=== PATIENT | female | born 1955 | race African-American/Black ===

== ENCOUNTER 2016-11-13 01:00 | Emergency (ER) | payer OTHER ==
[2016-11-13 01:23] VITALS: BP 150/72; TEMP 98.2; BMI 28.8
[2016-11-13] MEDS ORDERED: IBUPROFEN 400 MG TABLET (FP) PO ONE ×2 (01:58→02:02)
[2016-11-13] MEDS ORDERED: ONDANSETRON *ODT* 4 MG TABLET SL ONE (01:58)
--- NOTE | 2016-11-13 01:58 | PDOC ---
History of Present Illness - General History Source: Patient <Wes Austin - Last Filed: 11/13/16 03:10> - General History Source: Patient Exam Limitations: No Limitations - History of Present Illness Initial Comments: 11/13/16 03:20 The patient is a 61 year old female with significant past medical history of hypertension, hyperlipidemia, arrhythmia, copd/asthma and gerd who presents to the ED for headache prior to arrival. Patient reports she went to bed last night in her usual state of health when she was awoken around 12am with a headache and realize she did not take her blood pressure medications. States taking tylenol around 2am with minimal improvement. Denies lightheadedness, diaphoresis, SOB, chest pain, jaw pain, shoulder pain, arm pain, nausea, or vomiting. Upon triage, patient blood pressure was noted to be normal. The patient denies fever, chills, cough, abdominal pain, and diarrhea. Allergies: metoclopramide HCl, morphine Social History: No alcohol, tobacco, or drug use reported. Past Surgical History: appendectomy, cardiac catheterization PCP: Dr. Anthony Coffey <Bertha Martinez - Last Filed: 11/13/16 03:21> - General Chief Complaint: Blood Pressure Problem Stated Complaint: BP PROBLEM/SHOULDER PAIN Time Seen by Provider: 11/13/16 01:54 Past History - Past Medical History Anemia: No Asthma: Yes Cancer: No Cardiac Disorders: Yes (Arrythmia) CVA: No COPD: Yes CHF: No Dementia: No Diabetes: No GI Disorders: Yes (GERD) Disorders: No HTN: Yes Hypercholesterolemia: Yes Liver Disease: No Suicide Attempt (Hx): No Seizures: No Thyroid Disease: No - Surgical History Abdominal Surgery: No Appendectomy: Yes Cardiac Surgery: Yes (Cardiac Cath 2005, 2011,2016) Cholecystectomy: No Lung Surgery: No Neurologic Surgery: No Orthopedic Surgery: No - Family Disease History Family Disease History: Heart Disease: Father ( of [place] 63), Mother ( of [place] at age 59.) - Immunization History Immunization Up to Date: Yes - Psycho/Social/Smoking Cessation Hx Anxiety: No Suicidal Ideation: No Smoking Status: Yes Smoking History: Never smoked Have you smoked in the past 12 months: No Number of Cigarettes Smoked Daily: 0 If you are a former smoker, when did you quit?: Over 6 years ago Information on smoking cessation initiated: No Hx Alcohol Use: No Drug/Substance Use Hx: No Substance Use Type: None Hx Substance Use Treatment: No <Wes Austin - Last Filed: 11/13/16 03:10> <Bertha Martinez - Last Filed: 11/13/16 03:21> - Past Medical History Allergies/Adverse Reactions: Allergies Allergy/AdvReac Type Severity Reaction Status Date / Time lactose Allergy Mild Verified 11/13/16 01:21 wheat Allergy Unknown Verified 11/13/16 01:21 metoclopramide HCl Allergy Verified 11/13/16 01:21 [From Reglan] morphine Allergy Verified 11/13/16 01:21 Home Medications: Ambulatory Orders Amlodipine Besylate [Norvasc -] 10 mg PO DAILY 08/30/13 Nebivolol HCl [Bystolic] 5 mg PO DAILY 08/30/13 Valsartan [Diovan] 320 mg PO DAILY 08/30/13 Albuterol Sulfate Inhaler - [Ventolin HFA Inhaler -] 1 - 2 inh PO Q4H 01/14/15 Spironolactone 25 mg PO DAILY 01/14/15 Tiotropium [place] [Spiriva] 1 inh PO DAILY 01/14/15 Albuterol 0.083% Nebulizer Zaynab [Ventolin 0.083% Nebulizer Soln -] 1 neb NEB Q4H PRN #20 vial 08/12/15 Budesonide/Formeterol Fumarate [SYMBICORT 160/4.5mcg -] 1 inh PO BID 08/12/15 Fluticasone Propionate [Flovent Hfa] 10.6 gm IH PRN 08/12/15 Diphenhydramine HCl [Benadryl Capsule -] 25 mg PO TID #20 capsule 02/14/16 Methylprednisolone [Medrol Dose Jimmy] 4 mg PO ASDIR #21 tablet 02/14/16 Dextromethorphan Polistirex [Delsym] 30 mg PO BID #1 bottle 03/04/16 Loratadine [Claritin -] 10 mg PO DAILY #7 tablet 03/04/16 Naproxen [Naprosyn -] 500 mg PO BID #14 tablet 03/04/16 Ibuprofen 800 mg PO TID #30 tablet 11/13/16 Ondansetron [Zofran *Odt*] 4 mg SL TID #30 od.tablet 11/13/16 Review of Systems - Review of Systems Able to Perform ROS?: Yes Comments:: 11/13/16 03:20 CONSTITUTIONAL: Absent: fever, no chills, no fatigue EYES: Absent: visual changes ENT: Absent: ear pain, no sore throat CARDIOVASCULAR: Absent: chest pain, no palpitations RESPIRATORY: Absent: cough, no SOB GI: Absent: abdominal pain, no nausea, no vomiting, no constipation, no diarrhea GENITOURINARY: Absent: dysuria, no frequency, no hematuria MUSCULOSKELETAL: Absent: back pain, no arthralgia, no myalgia SKIN: Absent: rash NEURO: +headache <Bertha Martinez - Last Filed: 11/13/16 03:21> *Physical Exam - Vital Signs Last Vital Signs Temp Pulse Resp BP Pulse Ox 98.2 F 83 20 150/72 100 11/13/16 01:21 11/13/16 01:21 11/13/16 01:21 11/13/16 01:21 11/13/16 01:21 <Wes Austin - Last Filed: 11/13/16 03:10> - Vital Signs Last Vital Signs Temp Pulse Resp BP Pulse Ox 98.2 F 68 20 150/72 97 11/13/16 01:21 11/13/16 01:55 11/13/16 01:21 11/13/16 01:21 11/13/16 01:55 - Physical Exam Comments: 11/13/16 03:20 GENERAL: Well-appearing, well-nourished. No apparent distress. HEENT: Normocephalic, atraumatic. PERRL, EOM intact. CARDIOVASCULAR: Normal S1, S2. Regular rate and rhythm. PULMONARY: Clear to auscultation bilaterally. ABDOMEN: Soft, non-distended, non-tender. EXTREMITIES: Normal ROM in all four extremities. No gross deformities. SKIN: Warm, dry. No rash NEUROLOGICAL: No focal neurological deficits. <Bertha Martinez - Last Filed: 11/13/16 03:21> ED Treatment Course - Medications Given in the ED: ED Medications Discontinued Medications Generic Name Dose Route Start Last Admin Trade Name Freq PRN Reason Stop Dose Admin Ibuprofen 800 mg 11/13/16 01:58 11/13/16 02:05 Motrin - PO 11/13/16 01:59 800 mg ONCE ONE Administration Ondansetron HCl 4 mg 11/13/16 01:58 11/13/16 02:05 Zofran Odt - SL 11/13/16 01:59 4 mg ONCE ONE Administration <Bertha Martinez - Last Filed: 11/13/16 03:21> Medical Decision Making - Medical Decision Making 11/13/16 03:11 Dr. Austin: The scribe's documentation has been prepared under my direction and personally reviewed by me in its entirery. I confirm that the note above accurately reflects all work, treatment, procedures, and medical decision making performed by me. <Wes Austin - Last Filed: 11/13/16 03:10> *DC/Admit/Observation/Transfer - Discharge Dispostion Admit: No <Wes Austin - Last Filed: 11/13/16 03:10> - Attestations Scribe Attestion: 11/13/16 03:21 Documentation prepared by Bertha Martinez, acting as medical office assistant instructor for Wes Austin MD <Bertha Martinez - Last Filed: 11/13/16 03:21> Diagnosis at time of Disposition: Headache, Hypertension - Discharge Dispostion Disposition: HOME Condition at time of disposition: Stable - Prescriptions Prescriptions: Ibuprofen 800 mg PO TID #30 tablet Ondansetron [Zofran *Odt*] 4 mg SL TID #30 od.tablet - Referrals Referrals: Anthony Coffey MD [Primary Care Provider] - - Patient Instructions Printed Discharge Instructions: DI for High Blood Pressure
[2016-11-13 02:00] VITALS: PULSE 68
[2016-11-13] MEDS ORDERED: ONDANSETRON *ODT* 4 MG TABLET ONE (02:02)
== END 2016-11-13 03:30 | disposition home or self-care (01) ==
LOC: JER 01:00
DX: I10 Essential (primary) hypertension (principal); J44.9 Chronic obstructive pulmonary disease, unspecified; J45.909 Unspecified asthma, uncomplicated; E78.5 Hyperlipidemia, unspecified; K21.9 Gastro-esophageal reflux disease without esophagitis
CPT/HCPCS: 99283-25

== ENCOUNTER 2017-02-02 20:31 | Emergency (ER) | payer OTHER ==
[2017-02-02 20:57] VITALS: TEMP 98.2; BMI 30.4
--- NOTE | 2017-02-02 21:31 | PDOC ---
History of Present Illness - General History Source: Patient Exam Limitations: No Limitations - History of Present Illness Initial Comments: 02/02/17 21:54 The patient is a 62-year-old female, with significant past medical history of hypertension, hyperlipidemia, arrhythmia, copd/asthma and gerd, who presents to the ED with generalized weakness, chest tightness, left shoulder pain, headache , and neck pain that began 30 minutes prior to presentation. Pt frequently comes in with similar complaints. Pt is compliant with all her medications. She reports taking an additional dose of bystolic just prior to presentation. She denies experiencing any chest pain or chest tightness. Along with the headache, the pt reports having palpitations. She denies any fever, chills, nausea, vomiting, diarrhea, or abdominal pain. PCP: Dr Alicia <Jennifer Vitale - Last Filed: 02/02/17 21:54> - General History Source: Patient <Wes Austin - Last Filed: 02/02/17 22:36> - General Chief Complaint: Blood Pressure Problem Stated Complaint: HIGH BLOOD PRESS,PAIN Time Seen by Provider: 02/02/17 21:23 Past History <Jennifer Vitale - Last Filed: 02/02/17 21:54> - Past Medical History Anemia: No Asthma: Yes Cancer: No Cardiac Disorders: Yes (Arrythmia) CVA: No COPD: Yes CHF: No Dementia: No Diabetes: No GI Disorders: Yes (GERD) Disorders: No HTN: Yes Hypercholesterolemia: Yes Liver Disease: No Suicide Attempt (Hx): No Seizures: No Thyroid Disease: No - Surgical History Abdominal Surgery: No Appendectomy: Yes Cardiac Surgery: Yes (Cardiac Cath 2005, 2011,2016) Cholecystectomy: No Lung Surgery: No Neurologic Surgery: No Orthopedic Surgery: No - Family Disease History Family Disease History: Heart Disease: Father ( of [place] 63), Mother ( of [place] at age 59.) - Immunization History Immunization Up to Date: Yes - Psycho/Social/Smoking Cessation Hx Anxiety: No Suicidal Ideation: No Smoking Status: Yes Smoking History: Never smoked Have you smoked in the past 12 months: No Number of Cigarettes Smoked Daily: 0 If you are a former smoker, when did you quit?: Over 6 years ago Hx Alcohol Use: No Drug/Substance Use Hx: No Substance Use Type: None Hx Substance Use Treatment: No <Wes Austin - Last Filed: 02/02/17 22:36> - Past Medical History Allergies/Adverse Reactions: Allergies Allergy/AdvReac Type Severity Reaction Status Date / Time lactose Allergy Mild Verified 02/02/17 20:55 wheat Allergy Unknown Verified 02/02/17 20:55 metoclopramide HCl Allergy Verified 02/02/17 20:55 [From Reglan] morphine Allergy Verified 02/02/17 20:55 Home Medications: Ambulatory Orders Amlodipine Besylate [Norvasc -] 10 mg PO DAILY 08/30/13 Nebivolol HCl [Bystolic] 5 mg PO DAILY 08/30/13 Valsartan [Diovan] 320 mg PO DAILY 08/30/13 Spironolactone 25 mg PO DAILY 01/14/15 Albuterol 0.083% Nebulizer Zaynab [Ventolin 0.083% Nebulizer Soln -] 1 neb NEB Q4H PRN #20 vial 08/12/15 Fluticasone Propionate [Flovent Hfa] 10.6 gm IH PRN 08/12/15 Review of Systems - Review of Systems Able to Perform ROS?: Yes Comments:: 02/02/17 21:54 CONSTITUTIONAL: Present: generalized weakness Absent: fever, chills, diaphoresis, malaise, loss of appetite HEENT: Absent: rhinorrhea, nasal congestion, throat pain, throat swelling, difficulty swallowing, mouth swelling, ear pain, eye pain, visual Changes CARDIOVASCULAR: Present: palpitations Absent: chest pain, syncope, irregular heart rate, lightheadedness, peripheral edema RESPIRATORY: Absent: cough, shortness of breath, dyspnea with exertion, orthopnea, wheezing, stridor, hemoptysis GASTROINTESTINAL: Absent: abdominal pain, abdominal distension, nausea, vomiting, diarrhea, constipation, melena, hematochezia GENITOURINARY: Absent: dysuria, frequency, urgency, hesitancy, hematuria, flank pain, genital pain MUSCULOSKELETAL: Present: left shoulder pain, neck pain Absent: arthralgia, joint swelling SKIN: Absent: rash, itching, pallor HEMATOLOGIC/IMMUNOLOGIC: Absent: easy bleeding, easy bruising, lymphadenopathy, frequent infections ENDOCRINE: Absent: unexplained weight gain, unexplained weight loss, heat intolerance, cold intolerance NEUROLOGIC: Present: headache Absent: focal weakness or paresthesias, dizziness, unsteady gait, seizure, mental status changes, bladder or bowel incontinence PSYCHIATRIC: Absent: anxiety, depression, suicidal or homicidal ideation, hallucinations. <Jennifer Vitale - Last Filed: 02/02/17 21:54> *Physical Exam - Vital Signs Last Vital Signs Temp Pulse Resp BP Pulse Ox 98.2 F 91 H 20 138/81 98 02/02/17 20:55 02/02/17 20:55 02/02/17 20:55 02/02/17 21:52 02/02/17 20:55 - Physical Exam Comments: 02/02/17 21:56 GENERAL: Well developed, well nourished. Awake and alert. No acute distress. HEENT: Normocephalic, atraumatic. PERRLA, EOMI. No conjunctival pallor. Sclera are non- icteric. Moist mucous membranes. Oropharynx is clear. NECK: Supple. Full ROM. No JVD. Carotid pulses 2+ and symmetric, without bruits. No thyromegaly. No lymphadenopathy. CARDIOVASCULAR: Regular rate and rhythm. No murmurs, rubs, or gallops. Distal pulses are 2+ and symmetric. PULMONARY: No evidence of respiratory distress. Lungs clear to auscultation bilaterally. No wheezing, rales or rhonchi. ABDOMINAL: Soft. Non-tender. Non-distended. No rebound or guarding. No organomegaly. Normoactive bowel sounds. MUSCULOSKELETAL Normal range of motion at all joints. No bony deformities or tenderness. No CVA tenderness. EXTREMITIES: No cyanosis. No clubbing. No edema. No calf tenderness. SKIN: Warm and dry. Normal capillary refill. No rashes. No jaundice. NEUROLOGICAL: Alert, awake, appropriate. Cranial nerves 2-12 intact. PSYCHIATRIC: Cooperative. Good eye contact. Appropriate mood and affect. <IamJennifer - Last Filed: 02/02/17 21:54> - Vital Signs Last Vital Signs Temp Pulse Resp BP Pulse Ox 98.2 F 91 H 20 164/81 98 02/02/17 20:55 02/02/17 20:55 02/02/17 20:55 02/02/17 20:55 02/02/17 20:55 <Wes Austin - Last Filed: 02/02/17 22:36> ED Treatment Course - LABORATORY CBC & Chemistry Diagram: 02/02/17 21:44 02/02/17 21:44 <Jennifer Vitale - Last Filed: 02/02/17 21:54> - LABORATORY CBC & Chemistry Diagram: 02/02/17 21:44 02/02/17 21:44 <Wes Austin - Last Filed: 02/02/17 22:36> Medical Decision Making - Medical Decision Making 02/02/17 22:35 Dr. Austin: The scribe's documentation has been prepared under my direction and personally reviewed by me in its entirery. I confirm that the note above accurately reflects all work, treatment, procedures, and medical decision making performed by me. Pt feeing better since she arrived. BP has improved without treatment. Will discharge <Wes Austin - Last Filed: 02/02/17 22:36> *DC/Admit/Observation/Transfer - Attestations Scribe Attestion: 02/02/17 21:57 Documentation prepared by Jennifer Vitale, acting as hospital medical biller for Wes Austin MD. <Jennifer Vitale - Last Filed: 02/02/17 21:54> - Discharge Dispostion Admit: No <Wes Austin - Last Filed: 02/02/17 22:36> Diagnosis at time of Disposition: Hypertension Qualifiers: Hypertension type: unspecified Qualified Code(s): I10 - Essential (primary) hypertension - Discharge Dispostion Disposition: HOME Condition at time of disposition: Stable - Referrals Referrals: Anthony Coffey MD [Primary Care Provider] - - Patient Instructions Printed Discharge Instructions: DI for High Blood Pressure, How to Monitor Your Blood Pressure at Home Additional Instructions: continue taking all your medications. Return if any problems
[2017-02-02] MEDS ORDERED: hydrALAZINE HCL 20 MG/ML VIAL IVPUSH ONE (21:32)
[2017-02-02] MEDS ORDERED: hydrALAZINE HCL 20 MG/ML VIAL ONE (21:46)
[2017-02-02] MEDS ORDERED: ACETAMINOPHEN 325 MG TABLET (FP) PO ONE (21:50)
[2017-02-02] MEDS ORDERED: ACETAMINOPHEN 325 MG TABLET (FP) ONE (21:53)
[2017-02-02 21:54] LABS: BASOPHIL 0.5 % (0-2.0); MCHC 33.1 g/dl (32.0-36.0); MEAN CELL VOLUME 90.5 fl (80-96); MEAN PLT VOLUME 9.9 fl (7.5-11.1); NEUTROPHILS 52.2 % (42.8-82.8); PLATELET COUNT 172 K/MM3 (134-434); RDW 13.9 % (11.6-15.6); WHITE BLOOD COUNT 4.1 K/mm3 (4.0-10.0)
[2017-02-02 22:23] LABS: ANION GAP 7 (8-16); CALCIUM 9.1 mg/dL (8.5-10.1); CO2 28 mmol/L (21-32); GLUCOSE,RANDOM 93 mg/dL (74-106); SGOT/AST 20 U/L (15-37); SGPT/ALT 25 U/L (12-78); TOT PROT 7.7 g/dl (6.4-8.2)
[2017-02-02 22:28] LABS: INR 0.93 (0.82-1.09); PROTHROMBIN TIME (PATIENT) 10.2 SEC (9.98-11.88)
[2017-02-02 22:29] LABS: ALK PHOS 103 U/L (45-117); BILIRUBIN,TOTAL 0.3 mg/dL (0.2-1.0); TROPONIN I < 0.02 ng/ml (0.00-0.05)
[2017-02-02 22:48] VITALS: BP 128/75; PULSE 60
--- NOTE | 2017-02-03 14:55 | EKG ---
Test Reason : Blood Pressure : / mmHG Vent. Rate : 066 BPM Atrial Rate : 066 BPM P-R Int : 160 ms QRS Dur : 076 ms QT Int : 402 ms P-R-T Axes : 036 -05 025 degrees QTc Int : 421 ms POOR DATA QUALITY, INTERPRETATION MAY BE ADVERSELY AFFECTED NORMAL SINUS RHYTHM SEPTAL INFARCT (CITED ON OR BEFORE 12-AUG-2015) ABNORMAL ECG WHEN COMPARED WITH ECG OF 12-AUG-2015 15:17, NO SIGNIFICANT CHANGE WAS FOUND Confirmed by ANUPAM OLVERA MD ([id number]) on 02/03/2017 2:55:03 PM Referred By: Confirmed By:ANUPAM OLVERA MD
== END 2017-02-02 22:49 | disposition home or self-care (01) ==
LOC: JER 20:31
DX: I10 Essential (primary) hypertension (principal); E78.5 Hyperlipidemia, unspecified; J44.9 Chronic obstructive pulmonary disease, unspecified; J45.909 Unspecified asthma, uncomplicated; K21.9 Gastro-esophageal reflux disease without esophagitis
CPT/HCPCS: 36415; 80053; 82550; 82553; 84484; 85025; 85610; 93005; 93010; 99282-25

== ENCOUNTER 2018-09-21 08:46 | Day surgery (SDC) | payer OTHER ==
[2018-09-20 16:18] VITALS: BMI 31.1
[2018-09-21 10:29] VITALS: TEMP 97.9
[2018-09-21 11:22] VITALS: BP 114/61; PULSE 55
--- NOTE | 2018-09-22 17:35 | PATH ---
Surgical Pathology Report Patient Name: LUKASZ PULLIAM [facility]. Rec. #: [id number] /Age/Gender: 1955 (Age: 63) / F Account: [id number] Location: [facility]-ENDOSCOPY Taken: 09/21/2018 Received: 09/21/2018 Reported: 09/22/2018 Physicians: Mayelin Gomez M.D. Specimen(s) Received A: TRANSVERSE COLON POLYP B: DESCENDING COLON POLYP Clinical History Screening Postoperative diagnosis: Colon polyps Final Diagnosis A. TRANSVERSE COLON, POLYP, BIOPSY: POLYPOID COLONIC MUCOSA WITH PROMINENT LYMPHOID AGGREGATE AND FOCAL SUPERFICIAL HYPERPLASTIC FEATURES. B. DESCENDING COLON, POLYP, POLYPECTOMY: HYPERPLASTIC POLYP. Electronically Signed Kesha Posada M.D. Gross Description A. Received in formalin, labeled "polyp transverse colon" are 2 ruiz, irregular portions of soft tissue measuring 0.3 and 0.4 cm. in greatest dimension. The specimens are submitted in toto in one cassette. B. Received in formalin, labeled "polyp descending colon" is a ruiz, irregular portion of soft tissue measuring 0.8 cm. in greatest dimension. The specimen is submitted in toto in one cassette. /09/21/2018 saudi09/21/2018
== END 2018-09-21 11:22 | disposition home or self-care (01) ==
LOC: JASU-ENDO 08:46
PROVIDERS: ATTEND Internal Medicine Gastroenterology
PROC: 0DBL8ZX Excision of Transverse Colon, Via Natural or Artificial Opening Endoscopic, Diagnostic (ICD-10-PCS; 2018-09-21)
PROC: 0DBM8ZX Excision of Descending Colon, Via Natural or Artificial Opening Endoscopic, Diagnostic (ICD-10-PCS; principal; 2018-09-21 09:30)
DX: Z12.11 Encounter for screening for malignant neoplasm of colon (principal); D12.4 Benign neoplasm of descending colon; D12.3 Benign neoplasm of transverse colon
CPT/HCPCS: 88305-TC

== ENCOUNTER 2019-02-16 03:54 | Emergency (ER) | payer OTHER ==
[2019-02-16 04:50] VITALS: BP 146/82; PULSE 65; TEMP 97.5; BMI 30.1
--- NOTE | 2019-02-16 04:54 | PDOC ---
History of Present Illness - General Chief Complaint: Eye Problem Stated Complaint: RIGHT EYE BURNING PAIN Time Seen by Provider: 02/16/19 04:54 - History of Present Illness Initial Comments: 64 year old female with PMH of HTN, GERD, asthma, and chronic dry eyes presenting with right eye pain and tearing since applying eye drops early this evening. States that she woke up at approximately 24:00 this morning and applied hydrating eye drops to both of her eyes (in her typical fashion) but noted that she had burning in the right eye which worsened with repeat drop application. She does note any gross visual change. She does note amild right sided headache. Does not recall any episode of trauma to her eyes during her sleep. Denies fevers, chills, nausea, vomiting, or diarrhea. 02/16/19 12:43 Past History - Past Medical History Allergies/Adverse Reactions: Allergies Allergy/AdvReac Type Severity Reaction Status Date / Time metoclopramide HCl Allergy Severe Difficulty Verified 02/16/19 04:58 [From Reglan] Breathing morphine Allergy Severe Difficulty Verified 02/16/19 04:58 Breathing lactose Allergy Mild Verified 02/16/19 04:27 wheat Allergy Unknown Verified 02/16/19 04:27 Home Medications: Ambulatory Orders Amlodipine Besylate [Norvasc -] 10 mg PO DAILY 08/30/13 Nebivolol HCl [Bystolic] 5 mg PO DAILY 08/30/13 Valsartan [Diovan] 320 mg PO DAILY 08/30/13 Spironolactone 25 mg PO DAILY 01/14/15 Albuterol 0.083% Nebulizer Zaynab [Ventolin 0.083% Nebulizer Soln -] 1 neb NEB Q4H PRN #20 vial 08/12/15 Fluticasone Propionate [Flovent Hfa] 10.6 gm IH PRN 08/12/15 Oxycodone HCl/Acetaminophen [Oxycodone-Acetaminophen 10-325] 1 each PO DAILY 12/04 Ranitidine [Zantac -] 150 mg PO BID 09/20/18 Cyclosporine [Restasis] 1 each OP DAILY 02/16/19 Anemia: Yes Asthma: Yes Cancer: No Cardiac Disorders: Yes (Arrythmia) CVA: No COPD: Yes CHF: No Dementia: No Diabetes: No GI Disorders: Yes (GERD,Hyperplastic polyp) Disorders: No HTN: Yes Hypercholesterolemia: Yes Liver Disease: No Seizures: No Thyroid Disease: No - Surgical History Abdominal Surgery: No Appendectomy: Yes Cardiac Surgery: Yes (Cardiac Cath 2005, 2011,2015) Cholecystectomy: No Lung Surgery: No Neurologic Surgery: No Orthopedic Surgery: No - Family Disease History Family Disease History: Heart Disease: Father ( of [place] 63), Mother ( of [place] at age 59.) - Immunization History Immunization Up to Date: Yes - Suicide/Smoking/Psychosocial Hx Smoking Status: Yes Smoking History: Never smoked Have you smoked in the past 12 months: No Number of Cigarettes Smoked Daily: 0 If you are a former smoker, when did you quit?: 2006 Information on smoking cessation initiated: No Hx Alcohol Use: No Drug/Substance Use Hx: No Substance Use Type: None Hx Substance Use Treatment: No Review of Systems - Review of Systems Constitutional: No: Chills, Diaphoresis, Fever HEENTM: Yes: Eye Pain, Blurred Vision, Tearing. No: Recent change in vision, Double Vision Respiratory: No: Cough, Orthopnea Cardiac (ROS): No: Chest Pain, Edema ABD/GI: No: Diarrhea, Nausea, Vomiting : No: Dysuria, Discharge Musculoskeletal: No: Back Pain, Joint Pain Integumentary: No: Bruising, Erythema, Flushing, Lesions Neurological: No: Headache, Numbness, Paresthesia Hematologic/Lymphatic: No: Anemia, Blood Clots, Easy Bleeding *Physical Exam - Vital Signs Last Vital Signs Temp Pulse Resp BP Pulse Ox 97.5 F L 65 20 146/82 99 02/16/19 03:54 02/16/19 03:54 02/16/19 03:54 02/16/19 03:54 02/16/19 03:54 - Physical Exam General Appearance: Yes: Nourished, Appropriately Dressed. No: Apparent Distress HEENT: positive: EOMI, WESLY, Normal Voice. negative: Normal ENT Inspection ( mild right eye erythema with positive inferior corneal and conjunctival flourescien stain uptake. Vision grossly intact in both eyes and symmetrical) Neck: positive: Trachea midline, Normal Thyroid, Supple. negative: Tender, Rigid Respiratory/Chest: positive: Lungs Clear, Normal Breath Sounds. negative: Chest Tender, Respiratory Distress, Accessory Muscle Use Cardiovascular: positive: Regular Rhythm, Regular Rate Gastrointestinal/Abdominal: positive: Normal Bowel Sounds, Flat, Soft. negative : Tender Lymphatic: negative: Adenopathy, Tenderness Musculoskeletal: positive: Normal Inspection. negative: Decreased Range of Motion Extremity: positive: Normal Capillary Refill, Normal Inspection, Normal Range of Motion. negative: Tender Integumentary: positive: Normal Color, Dry, Warm Neurologic: positive: Fully Oriented, Alert, Normal Mood/Affect, Normal Response , Motor Strength 5/5 Medical Decision Making - Medical Decision Making 64 year old female presenting with right eye pain and + fluroescein test for corneal abrasion at inferior margin of right eye. Symptoms improved with tetracaine drops in right eye. Does not wear contacts so not at risk for infection. Will have patient follow up with her opthalmologist and provide her with return precautions. 02/16/19 12:52 *DC/Admit/Observation/Transfer Diagnosis at time of Disposition: Corneal abrasion, right Qualifiers: Encounter type: initial encounter Qualified Code(s): S05.01XA - Injury of conjunctiva and corneal abrasion without foreign body, right eye, initial encounter - Discharge Dispostion Disposition: HOME Condition at time of disposition: Improved Decision to Admit order: No - Referrals Referrals: Anthony Coffey MD [Primary Care Provider] - - Patient Instructions Printed Discharge Instructions: DI for Corneal Abrasion Additional Instructions: Please do not use contacts or put anything in your eyes. Please return to the ED if you have new or worsening symptoms. Please follow up with your eye doctor as soon as possible. - Post Discharge Activity
[2019-02-16] MEDS ORDERED: TETRACAINE 0.5% HCL 0.6ML DROPPER.BOTTLE OD ONE (05:03)
[2019-02-16] MEDS ORDERED: FLUORESCEIN NA 1 EA STRIP OD ONE (05:03)
--- NOTE | 2019-02-16 05:07 | PDOC ---
Attending Attestation - Resident Resident Name: Jim Hernandez - ED Attending Attestation I have performed the following: I have examined & evaluated the patient, The case was reviewed & discussed with the resident, I agree w/resident's findings & plan - HPI HPI: 02/16/19 05:55 64-year-old female with pain to the right eye. There is no known history of trauma. - Physicial Exam PE: 02/16/19 06:01 agree with resident exam - Medical Decision Making 02/16/19 06:01 64-year-old female with pain to the right eye Exam reveals a large right corneal abrasion Will DC with outpatient ophthalmology follow-up
[2019-02-16] MEDS ORDERED: TETRACAINE 0.5% OPHTH SOLN 2 ML BOTTLE ONE (05:29)
== END 2019-02-16 06:04 | disposition home or self-care (01) ==
LOC: JER 03:54
DX: S05.01XA Injury of conjunctiva and corneal abrasion without foreign body, right eye, initial encounter (principal); X58.XXXA Exposure to other specified factors, initial encounter; Y92.032 Bedroom in apartment as the place of occurrence of the external cause
CPT/HCPCS: 99281-25

== ENCOUNTER 2020-01-16 16:17 | Emergency (ER) | payer BC, OTHER ==
[2020-01-16 16:26] VITALS: BMI 28.8
[2020-01-16] MEDS ORDERED: ACETAMINOPHEN 1000 MG/100 ML VIAL (NON FORMULARY) IVPB ONE (16:33)
[2020-01-16] MEDS ORDERED: SODIUM CHLORIDE 0.9% 500 ML INFUS.BAG IV ONE (16:33)
[2020-01-16] MEDS ORDERED: ACETAMINOPHEN INJECTION 100 ML IVPB ONE (16:50)
[2020-01-16 17:18] LABS: BASO % 0.4 % (0-2.0); EOS % 1.5 % (0-4.5); HEMATOCRIT 38.8 % (32.4-45.2); HEMOGLOBIN 12.9 GM/dL (10.7-15.3); LYMPH % 41.6 % (8-40); MCH 30.6 pg (25.7-33.7); MCHC 33.1 g/dl (32.0-36.0); MEAN CELL VOLUME 92.5 fl (80-96); MEAN PLT VOLUME 9.7 fl (7.5-11.1); MONO % 8.8 % (3.8-10.2); NEUT % 47.7 % (42.8-82.8); PLATELET COUNT 195 K/MM3 (134-434); RDW 13.8 % (11.6-15.6)
[2020-01-16 17:27] LABS: PROTHROMBIN TIME (PATIENT) 11.8 SEC (9.7-13.0)
[2020-01-16 17:51] LABS: BILIRUBIN,TOTAL 0.4 mg/dL (0.2-1); BLOOD UREA NITROGEN 10.4 mg/dL (7-18); CALCIUM 9.8 mg/dL (8.5-10.1); CREATININE 1.3 mg/dL (0.55-1.3); POTASSIUM 3.6 mmol/L (3.5-5.1); TOT PROT 7.3 g/dl (6.4-8.2)
--- NOTE | 2020-01-16 18:25 | PDOC ---
History of Present Illness - General Chief Complaint: Headache Stated Complaint: HEADACHES Time Seen by Provider: 01/16/20 16:21 - History of Present Illness Initial Comments: 01/16/20 18:23 64-year-old female with a past medical history of hypertension presents for sudden onset headache. She states she was getting into a [employer] air [employer] and immediately got headache. No prior headaches like this in the past. Past History - Medical History Allergies/Adverse Reactions: Allergies Allergy/AdvReac Type Severity Reaction Status Date / Time metoclopramide HCl Allergy Severe Difficulty Verified 01/05/20 00:50 [From Reglan] Breathing morphine Allergy Severe Difficulty Verified 01/05/20 00:50 Breathing lactose Allergy Mild Verified 01/05/20 00:50 wheat Allergy Unknown Verified 01/05/20 00:50 Home Medications: Ambulatory Orders Amlodipine Besylate [Norvasc -] 10 mg PO DAILY 08/30/13 Nebivolol HCl [Bystolic] 5 mg PO DAILY 08/30/13 Valsartan [Diovan] 320 mg PO DAILY 08/30/13 Spironolactone 25 mg PO DAILY 01/14/15 Albuterol 0.083% Nebulizer Zaynab [Ventolin 0.083% Nebulizer Soln -] 1 neb NEB Q4H PRN #20 vial 08/12/15 Fluticasone Propionate [Flovent Hfa] 10.6 gm IH PRN 08/12/15 Oxycodone HCl/Acetaminophen [Oxycodone-Acetaminophen 10-325] 1 each PO DAILY 09/20/18 Ranitidine [Zantac -] 150 mg PO BID 09/20/18 Cyclosporine [Restasis] 1 each OP DAILY 02/16/19 Anemia: Yes Asthma: Yes Cancer: No Cardiac Disorders: Yes (Arrythmia) CVA: No COPD: Yes CHF: No Dementia: No Diabetes: No GI Disorders: Yes (GERD,Hyperplastic polyp) Disorders: No HTN: Yes Hypercholesterolemia: Yes Liver Disease: No Seizures: No Thyroid Disease: No - Surgical History Abdominal Surgery: No Appendectomy: Yes Cardiac Surgery: Yes (Cardiac Cath 2005, 2011,2016) Cholecystectomy: No Lung Surgery: No Neurologic Surgery: No Orthopedic Surgery: No - Immunization History Immunization Up to Date: Yes - Psycho-Social/Smoking History Smoking Status: Yes Smoking History: Never smoked Have you smoked in the past 12 months: No Number of Cigarettes Smoked Daily: 0 If you are a former smoker, when did you quit?: 2007 - Substance Abuse Hx (Audit-C & DAST Scrn) How often the patient has a drink containing alcohol: Never Score: In Men: 4 or > Positive; In Women: 3 or > Positive: 0 Screen Result (Pos requires Nsg. Audit-10AR): Negative In the last yr the pt used illegal drug/Rx for NonMed reason: No Score: Yes response is considered Positive: 0 Screen Result (Positive result requires Nsg. DAST-10): Negative Review of Systems - Review of Systems ABD/GI: No: Nausea, Vomiting Neurological: Yes: Headache *Physical Exam - Vital Signs Last Vital Signs Temp Pulse Resp BP Pulse Ox 98.5 F 74 16 153/90 100 01/16/20 16:21 01/16/20 16:21 01/16/20 16:21 01/16/20 16:21 01/16/20 16:21 - Physical Exam 01/16/20 18:23 GENERAL: The patient is awake, alert, and fully oriented, in no acute distress. HEAD: Normal with no signs of trauma. EYES: sclera anicteric, conjunctiva clear. ENT: Ears normal tympanic membranes normal oropharynx clear uvula midline NECK: Normal range of motion LUNGS: Breath sounds equal, clear to auscultation bilaterally. No wheezes, and no crackles. HEART: S1 and S2 without murmur, rub or gallop. ABDOMEN: Soft, nontender, normoactive bowel sounds. No guarding, no rebound. No masses. EXTREMITIES: Normal range of motion, no edema. No clubbing or cyanosis. No cords, erythema, or tenderness. NEUROLOGICAL: Cranial nerves II through XII grossly intact.Negative Romberg PSYCH: Normal mood, normal affect. SKIN: Warm, Dry, normal turgor, no rashes or lesions noted. ED Treatment Course - LABORATORY CBC & Chemistry Diagram: 01/16/20 17:00 01/16/20 17:00 - ADDITIONAL ORDERS Additional order review: Laboratory Results 01/16/20 01/16/20 17:00 17:00 PT with INR 11.80 INR 1.00 Sodium 140 Potassium 3.6 Chloride 104 Carbon Dioxide 28 Anion Gap 8 BUN 10.4 Creatinine 1.3 Est GFR (CKD-EPI)AfAm 50.21 Est GFR (CKD-EPI)NonAf 43.32 Random Glucose 97 Calcium 9.8 Total Bilirubin 0.4 AST 25 ALT 26 Alkaline Phosphatase 81 Total Protein 7.3 Albumin 4.0 01/16/20 17:00 RBC 4.20 MCV 92.5 MCHC 33.1 RDW 13.8 MPV 9.7 Neutrophils % 47.7 Lymphocytes % 41.6 H D Monocytes % 8.8 Eosinophils % 1.5 Basophils % 0.4 - RADIOLOGY Radiology Studies Ordered: Category Date Time Status HEAD CT WITHOUT CONTRAST [CT] Stat CT Scan 01/16/20 17:10 Completed - Medications Given in the ED: ED Medications Discontinued Medications Generic Name Dose Route Start Last Admin Trade Name Freq PRN Reason Stop Dose Admin Acetaminophen 1,000 mg 01/16/20 16:33 01/16/20 17:02 Ofirmev Injection - IVPB 01/16/20 16:34 1,000 mg ONCE ONE Administration Sodium Chloride 1,000 ml 01/16/20 16:33 01/16/20 17:02 Normal Saline - IV 01/16/20 16:34 1,000 ml ONCE ONE Administration Medical Decision Making - Medical Decision Making 01/16/20 18:23 Patient is better after IV fluids and affirmative 01/16/20 18:24 I have reviewed the pathophysiology with the patient. They are in agreement with the treatment plan all questions were answered to their satisfaction. Understanding for follow-up without fail was also conveyed to the patient. Again they are in agreement. Discharge - Discharge Information Problems reviewed: Yes Clinical Impression/Diagnosis: Headache Condition: Stable Disposition: HOME - Admission No - Follow up/Referral Referrals: Anthony Coffey MD [Primary Care Provider] - Madi Escamilla MD [Staff Physician] - - Patient Discharge Instructions Additional Instructions: Tylenol as directed for pain. Return to the emergency room for worsening symptoms and without fail follow-up with neurology in 1 to 2 days for further evaluation and treatment options. - Post Discharge Activity
[2020-01-16 18:37] VITALS: BP 138/69; PULSE 69; TEMP 98.6
== END 2020-01-16 18:37 | disposition home or self-care (01) ==
LOC: JER 16:17
PROC: 3E033NZ Introduction of Analgesics, Hypnotics, Sedatives into Peripheral Vein, Percutaneous Approach (ICD-10-PCS; principal; 2020-01-16)
DX: R51 Headache (principal)
CPT/HCPCS: 36415; 70450-TC; 80053; 85025; 85610; 96374; 99284-25; J0131

== ENCOUNTER 2020-03-30 01:17 | Emergency (ER) | payer BC, OTHER ==
[2020-03-30 01:43] VITALS: TEMP 98.3; BMI 26.7
--- NOTE | 2020-03-30 02:01 | PDOC ---
History of Present Illness - General Chief Complaint: Shoulder Dislocation Stated Complaint: LEFT SHOULDER PAIN Time Seen by Provider: 03/30/20 02:00 - History of Present Illness Initial Comments: HPI: 65yo F with PMH of HTN, HLD, asthma, chronic cough presenting with left shoulder pain. Patient reports she started having chest pain acutely around 10 or 11pm while she was sleeping. Has never had pain like this before. Also reporting an abnormal chest sensation that she had concurrently. Has had this same sensation before, but does not know why. Endorsing nausea, but no vomiting or diaphoresis. Pain is not palpable or pleuritic. Reports family history of blood clot in both her parents. No new exertional activities such as heavy lifting. Denies hemoptysis, no recent surgical history, no recent immobilization, no hormone use, no history of DVT or PE. Without fever or chills. PCP: Dr. Coffey ROS: Constitutional: no fever, no chills HEENT: no throat pain, no dysphagia Cardiovascular: +chest pain, no palpitations Respiratory: no cough, no shortness of breath Gastrointestinal: no abdominal pain, no vomiting Genitourinary: no dysuria, no hematuria Musculoskeletal: no myalgia, +L. shoulder pain Skin: no rash, no itching Neurologic: no headache, no weakness Psych: no agitation, no anxiety PE: General: Awake, alert, and fully oriented, in no acute distress Head: No signs of trauma Eyes: EOMI, sclera anicteric ENT: Moist mucus membranes Neck: Normal ROM, supple Lungs: Lungs clear, Normal breath sounds Cardio: Regular rhythm, S1 and S2 present Abdomen: Soft, nontender Extremities: Normal range of motion, Distal pulses present, No calf tenderness; Normal ROM in left shoulder, no crepitus Skin: Warm, Dry, normal turgor Neurologic: Cranial nerves II through XII grossly intact. Normal speech ED Course/MDM: DDX including but not limited to COVID-19, ACS, PE, PNA, anemia, metabolic derangement Labs, EKG, CXR L. Shoulder radiograph Tylenol 03/30/20 02:00 EKG: rate 51, QTc 398, sinus bradycardia CBC WBC 4.0 K/mm3 (4.0-10.0) 03/30/20 02:23 RBC 3.61 M/mm3 (3.60-5.2) 03/30/20 02:23 Hgb 11.5 GM/dL (10.7-15.3) 03/30/20 02:23 Hct 33.7 % (32.4-45.2) 03/30/20 02:23 MCV 93.3 fl (80-96) 03/30/20 02:23 MCH 31.8 pg (25.7-33.7) 03/30/20 02:23 MCHC 34.0 g/dl (32.0-36.0) 03/30/20 02:23 RDW 13.7 % (11.6-15.6) 03/30/20 02:23 Plt Count 167 K/MM3 (134-434) 03/30/20 02:23 MPV 10.3 fl (7.5-11.1) 03/30/20 02:23 Absolute Neuts (auto) 1.7 K/mm3 (1.5-8.0) 03/30/20 02:23 Neutrophils % 43.7 % (42.8-82.8) 03/30/20 02:23 Lymphocytes % 41.6 % (8-40) H 03/30/20 02:23 Monocytes % 10.6 % (3.8-10.2) H 03/30/20 02:23 Eosinophils % 3.5 % (0-4.5) D 03/30/20 02:23 Basophils % 0.6 % (0-2.0) 03/30/20 02:23 Nucleated RBC % 0 % (0-0) 03/30/20 02:23 No leukocytosis or anemia CMP Sodium 141 mmol/L (136-145) 03/30/20 02:23 Potassium 3.9 mmol/L (3.5-5.1) 03/30/20 02:23 Chloride 107 mmol/L (98-107) 03/30/20 02:23 Carbon Dioxide 28 mmol/L (21-32) 03/30/20 02:23 Anion Gap 6 MMOL/L (8-16) L 03/30/20 02:23 BUN 20.8 mg/dL (7-18) H 03/30/20 02:23 Creatinine 1.3 mg/dL (0.55-1.3) 03/30/20 02:23 Est GFR (CKD-EPI)AfAm 49.86 03/30/20 02:23 Est GFR (CKD-EPI)NonAf 43.02 03/30/20 02:23 Random Glucose 98 mg/dL (74-106) 03/30/20 02:23 Calcium 9.0 mg/dL (8.5-10.1) 03/30/20 02:23 Total Bilirubin 0.3 mg/dL (0.2-1) 03/30/20 02:23 AST 17 U/L (15-37) 03/30/20 02:23 ALT 21 U/L (13-61) 03/30/20 02:23 Alkaline Phosphatase 81 U/L (45-117) 03/30/20 02:23 Creatine Kinase 127 U/L (26-192) 03/30/20 02:23 Troponin I < 0.02 ng/ml (0.00-0.05) 03/30/20 02:23 Total Protein 7.0 g/dl (6.4-8.2) 03/30/20 02:23 Albumin 3.8 g/dl (3.4-5.0) 03/30/20 02:23 Electrolytes unremarkable Cr normal No transaminitis Tpn undetectable D-dimer normal 03/30/20 03:30 Laboratory Tests 03/30/20 03:50 Urine Color Yellow Urine Appearance Clear Urine pH 5.0 Ur Specific Marks 1.007 L Urine Protein Negative Urine Glucose (UA) Negative Urine Ketones Negative Urine Blood Negative Urine Nitrite Negative Urine Bilirubin Negative Urine Urobilinogen 0.2 Ur Leukocyte Esterase Negative UA without infection To follow up with primary care physician Return precautions Stable for discharge 03/30/20 04:15 Past History - Medical History Allergies/Adverse Reactions: Allergies Allergy/AdvReac Type Severity Reaction Status Date / Time metoclopramide HCl Allergy Severe Difficulty Verified 03/30/20 01:41 [From Reglan] Breathing morphine Allergy Severe Difficulty Verified 03/30/20 01:41 Breathing lactose Allergy Mild Verified 03/30/20 01:41 wheat Allergy Unknown Verified 03/30/20 01:41 Home Medications: Ambulatory Orders Amlodipine Besylate [Norvasc -] 10 mg PO DAILY 08/30/13 Nebivolol HCl [Bystolic] 5 mg PO DAILY 08/30/13 Valsartan [Diovan] 320 mg PO DAILY 02/12/14 Spironolactone 25 mg PO DAILY 01/14/15 Albuterol 0.083% Nebulizer Zaynab [Ventolin 0.083% Nebulizer Soln -] 1 neb NEB Q4H PRN #20 vial 08/12/15 Fluticasone Propionate [Flovent Hfa] 10.6 gm IH PRN 08/12/15 Oxycodone HCl/Acetaminophen [Oxycodone-Acetaminophen 10-325] 1 each PO DAILY 09/20/18 Ranitidine [Zantac -] 150 mg PO BID 09/20/18 Cyclosporine [Restasis] 1 each OP DAILY 02/16/19 Anemia: Yes Asthma: Yes Cancer: No Cardiac Disorders: Yes (Arrythmia) CVA: No COPD: Yes CHF: No Dementia: No Diabetes: No GI Disorders: Yes (GERD,Hyperplastic polyp) Disorders: No HTN: Yes Hypercholesterolemia: Yes Liver Disease: No Seizures: No Thyroid Disease: No - Surgical History Abdominal Surgery: No Appendectomy: Yes Cardiac Surgery: Yes (Cardiac Cath 2005, 2011,2015) Cholecystectomy: No Lung Surgery: No Neurologic Surgery: No Orthopedic Surgery: No - Reproductive History Is Patient Now?: No - Immunization History Immunization Up to Date: Yes - Psycho-Social/Smoking History Smoking Status: Yes Smoking History: Never smoked Have you smoked in the past 12 months: No Number of Cigarettes Smoked Daily: 0 If you are a former smoker, when did you quit?: 2006 Information on smoking cessation initiated: No - Substance Abuse Hx (Audit-C & DAST Scrn) How often the patient has a drink containing alcohol: Never Score: In Men: 4 or > Positive; In Women: 3 or > Positive: 0 Screen Result (Pos requires Nsg. Audit-10AR): Negative In the last yr the pt used illegal drug/Rx for NonMed reason: No Score: Yes response is considered Positive: 0 Screen Result (Positive result requires Nsg. DAST-10): Negative *Physical Exam - Vital Signs Last Vital Signs Temp Pulse Resp BP Pulse Ox 98.3 F 82 18 121/77 99 03/30/20 01:42 03/30/20 01:42 03/30/20 01:42 03/30/20 01:42 03/30/20 01:42 ED Treatment Course - LABORATORY CBC & Chemistry Diagram: 03/30/20 02:23 03/30/20 02:23 - RADIOLOGY Radiology Studies Ordered: Category Date Time Status SHOULDER-LEFT [RAD] Stat Radiology 03/30/20 01:51 Ordered Discharge - Discharge Information Problems reviewed: Yes Clinical Impression/Diagnosis: Left shoulder pain Qualifiers: Chronicity: acute Qualified Code(s): M25.512 - Pain in left shoulder Condition: Stable Disposition: HOME - Follow up/Referral Referrals: Anthony Coffey MD [Primary Care Provider] - - Patient Discharge Instructions Patient Printed Discharge Instructions: DI for Shoulder Pain Additional Instructions: You came into the emergency department for left shoulder pain. We took x-rays which did not show acute pathology. Your blood work was also within normal limits. You can take [id number] tylenol or motrin for pain. Follow the instructions on the medication bottle. Make sure you do not take too much medicine. The maximum daily dose for tylenol is 4000mg/day. The maximum daily dose for motrin is 3200mg/day. Follow-up with your primary care doctor this week to discuss this ED visit and to ensure you are progressing appropriately. Call and make an appointment. Your workup is not complete until you do so. Immediate medical attention is required if you experience: any focal numbness or weakness, coldness in the limb, or any new or concerning symptoms. If you think you are having an emergency, call for emergency medical services or present to the emergency department right away. - Post Discharge Activity
[2020-03-30] MEDS ORDERED: ACETAMINOPHEN 325 MG TABLET (FP) PO ONE (02:03)
[2020-03-30] MEDS ORDERED: ACETAMINOPHEN 325 MG TABLET (FP) ONE (02:44)
[2020-03-30 02:55] LABS: BASO % 0.6 % (0-2.0); EOS % 3.5 % (0-4.5); HEMATOCRIT 33.7 % (32.4-45.2); HEMOGLOBIN 11.5 GM/dL (10.7-15.3); LYMPH % 41.6 % (8-40); MCH 31.8 pg (25.7-33.7); MEAN CELL VOLUME 93.3 fl (80-96); MEAN PLT VOLUME 10.3 fl (7.5-11.1); MONO % 10.6 % (3.8-10.2); NEUT % 43.7 % (42.8-82.8); PLATELET COUNT 167 K/MM3 (134-434); RBC 3.61 M/mm3 (3.60-5.2); RDW 13.7 % (11.6-15.6)
[2020-03-30 02:59] LABS: INR 0.96 (0.83-1.09); PROTHROMBIN TIME (PATIENT) 11.3 SEC (9.7-13.0)
[2020-03-30 03:02] LABS: ACTIVATED PTT 31.4 SECONDS (25.2-36.5)
[2020-03-30 03:05] LABS: ALBUMIN 3.8 g/dl (3.4-5.0); ALK PHOS 81 U/L (45-117); BILIRUBIN,TOTAL 0.3 mg/dL (0.2-1); BLOOD UREA NITROGEN 20.8 mg/dL (7-18); CO2 28 mmol/L (21-32); CREATININE 1.3 mg/dL (0.55-1.3); POTASSIUM 3.9 mmol/L (3.5-5.1); SGPT/ALT 21 U/L (13-61)
[2020-03-30 03:22] LABS: ANION GAP 6 MMOL/L (8-16); CHLORIDE 107 mmol/L (98-107); SODIUM 141 mmol/L (136-145)
[2020-03-30 03:23] LABS: GLUCOSE,RANDOM 98 mg/dL (74-106)
[2020-03-30 03:27] LABS: SGOT/AST 17 U/L (15-37)
--- NOTE | 2020-03-30 03:27 | PDOC ---
Attending Attestation - Resident Resident Name: Patti Du - ED Attending Attestation I have performed the following: I have examined & evaluated the patient, The case was reviewed & discussed with the resident, I agree w/resident's findings & plan - HPI HPI: 03/30/20 03:34 Pt has had left elbow pain. Tonight she felt left shoulder pain and she is anxious that it is her heart. Mom and dad have had hypercoagulable disease. She is anxoius about her heart as she has HTN and high cholesterol. - Physicial Exam PE: 03/30/20 03:35 Normal exam Agree with the residenet exam - Medical Decision Making 03/30/20 03:35 Pt has normal labs and normal EKG - sinus bradycardia Pt has normal CXR and left shoulder XRAY 03/30/20 03:38 03/30/20 04:16 UA normal Heart Score/ECG Review - ECG Intrepretation Rhythm: Regular Rhythm - [place]: Normal - P and RI Prominent R with upright T in V1 (true posterior WI): No Delta Wave(s) Present: No WPW: No - QRS Poor R Wave Progression: No Q Wave Present: No - ST and T Early Repolarization: No Non Specific ST-T Wave changes: No - ECG Impressions Normal ECG: Yes Non-specific ST Elevation: No Ischemic Changes: No Bradycardia: Yes Discharge - Discharge Information Problems reviewed: Yes Clinical Impression/Diagnosis: Atypical chest pain Left shoulder pain Qualifiers: Chronicity: acute Qualified Code(s): M25.512 - Pain in left shoulder Condition: Improved Disposition: HOME - Follow up/Referral Referrals: Anthony Coffey MD [Primary Care Provider] - - Patient Discharge Instructions Patient Printed Discharge Instructions: DI for Shoulder Pain Additional Instructions: You came into the emergency department for left shoulder pain. We took x-rays which did not show acute pathology. Your blood work was also within normal limits. You can take [id number] tylenol or motrin for pain. Follow the instructions on the medication bottle. Make sure you do not take too much medicine. The maximum daily dose for tylenol is 4000mg/day. The maximum daily dose for motrin is 3200mg/day. Follow-up with your primary care doctor this week to discuss this ED visit and to ensure you are progressing appropriately. Call and make an appointment. Your workup is not complete until you do so. Immediate medical attention is required if you experience: any focal numbness or weakness, coldness in the limb, or any new or concerning symptoms. If you think you are having an emergency, call for emergency medical services or present to the emergency department right away. - Post Discharge Activity
[2020-03-30 04:05] LABS: URINE APPEARANCE CLEAR; URINE BILIRUBIN NEGATIVE (NEGATIVE); URINE COLOR YELLOW; URINE GLUCOSE (UA) NEGATIVE (NEGATIVE); URINE KETONE NEGATIVE (NEGATIVE); URINE LEUK ESTERASE NEGATIVE (NEGATIVE); URINE NITRITE NEGATIVE (NEGATIVE); URINE PROTEIN NEGATIVE (NEGATIVE); URINE UROBILINOGEN 0.2 mg/dL (0.2-1.0)
[2020-03-30 04:25] VITALS: BP 118/68; PULSE 72
--- NOTE | 2020-04-01 11:31 | EKG ---
Test Reason : Blood Pressure : / mmHG Vent. Rate : 051 BPM Atrial Rate : 051 BPM P-R Int : 162 ms QRS Dur : 086 ms QT Int : 432 ms P-R-T Axes : 000 -17 208 degrees QTc Int : 398 ms SINUS BRADYCARDIA ANTEROSEPTAL INFARCT , AGE UNDETERMINED ABNORMAL ECG WHEN COMPARED WITH ECG OF 05-JAN-2020 01:08, VENT. RATE HAS DECREASED T WAVE INVERSION IS SEEN Confirmed by KAREY WELSH, ERMELINDA ([id number]) on 04/01/2020 11:31:40 AM Referred By: Confirmed By:ERMELINDA EDEN MD
== END 2020-03-30 04:25 | disposition home or self-care (01) ==
LOC: JER 01:17
DX: M25.512 Pain in left shoulder (principal)
CPT/HCPCS: 36415; 71046-TC-FY; 73030-TC-LT-FY; 80053; 81003; 82550; 84484; 85025; 85379; 85610; 85730; 93005; 93010; 99285-25

== ENCOUNTER 2020-04-17 00:59 | Emergency (ER) | payer BC ==
[2020-04-17 01:27] VITALS: TEMP 98.5; BMI 27.3
--- NOTE | 2020-04-17 01:32 | PDOC ---
*Physical Exam - Vital Signs Last Vital Signs Temp Pulse Resp BP Pulse Ox 98.5 F 66 18 121/64 100 04/17/20 01:25 04/17/20 01:25 04/17/20 01:25 04/17/20 01:25 04/17/20 01:25 Medical Decision Making - Medical Decision Making 04/17/20 01:31 Patient seen by the advanced practice provider under my supervision. Ancillary testing reviewed as necessary. I agree with plan as outlined by the advanced practice provider. Discharge - Discharge Information Condition: Fair - Follow up/Referral Referrals: Anthony Coffey MD [Primary Care Provider] - - Patient Discharge Instructions - Post Discharge Activity
--- OUTSIDE RECORDS SUMMARY | 2020-04-17 01:35 | XMS ---
:1955 Author Organization [facility] Care Team Providers Name Role Phone MARIA DOLORESLEE ANN, MHAW9 Unavailable Unavailable ROSARIO BERNARDO Unavailable Unavailable Jonah Schneider MD Unavailable Unavailable EMERGENCY SERVICE, X Unavailable Unavailable Narciso Zapata MD Unavailable Unavailable Narciso Zapata MD Unavailable Unavailable Narciso Zapata MD Unavailable Unavailable Narciso Zapata MD Unavailable Unavailable ALBA, DAMARIS Unavailable Unavailable TIFFANY QUINONES Unavailable Unavailable ZIYAD DALY Unavailable Unavailable Re-disclosure Warning The records that you are about to access may contain information from federally- assisted alcohol or drug abuse programs. If such information is present, then the following federally mandated warning applies: This information has been disclosed to you from records protected by federal confidentiality rules (42 CFR part 2). The federal rules prohibit you from making any further disclosure of this information unless further disclosure is expressly permitted by the written consent of the person to whom it pertains or as otherwise permitted by 42 CFR part 2. A general authorization for the release of medical or other information is NOT sufficient for this purpose. The Federal rules restrict any use of the information to criminally investigate or prosecute any alcohol or drug abuse patient.The records that you are about to access may contain highly sensitive health information, the redisclosure of which is protected by Article 27-F of the [facility] Public Health law. If you continue you may haveaccess to information: Regarding HIV / AIDS; Provided by facilities licensed or operated by the [facility] Office of Mental Health; or Provided by the [facility] Office for People With Developmental Disabilities. If such information is present, then the following [facility] mandated warning applies: This information has been disclosed to you from confidential records which are protected by state law. State law prohibits you from making any further disclosure of this information without the specific written consent of the person to whom it pertains, or as otherwise permitted by law. Any unauthorized further disclosure in violation of state law may result in a fine or nursing home sentence or both. A general authorization for the release of medical or other information is NOT sufficient authorization for further disclosure. Allergies and Adverse Reactions Type Description Substance Reaction Status Data Source(s ) Food allergy honey honey [facility] on Drug allergy honey honey [facility] on Food allergy gluten gluten [facility] on Drug allergy gluten gluten [facility] on Food allergy Dairy Products Dairy Products [facility] on Food allergy No Known Food No Known Food [place] [facility]ergies [facility] morphine morphine [facility] on Drug allergy No Known Allergies No Known Allergies [facility] on Drug allergy metoclopramide metoclopramide [facility] on Drug allergy No Known Drug No Known Drug [place] [facility] Allergies [facility] No Known Allergies No Known Allergies NONE [facility] Encounters Encounter Providers Location Date Indications Data Source(s ) Emergency Attender: JONI, 04/13/2020 CHEST PAIN [facility] TIFFANYAttender: 12:48:00 [facility] EMERGENCY SERVICE, EDT Betweenitter: TIFFANY QUINONES CHEST PAIN Emergency Attender: ADDY 03/14/2020 12:07:00 FAST HEAR [facility] IVANAttender: PM EDT [facility] EMERGENCY SERVICE, Betweenitter: ZIYAD DALY FAST HEART RATE Outpatient Attender: [place], 01/28/2020 ELEVATED BP, [facility] wanda JEFFREYOPHERAttender: 05:50:00 AM EDT DIZZINESS [facility] DAMARIS WILLISAdmitter: [employer] DAMARIS WILLIS ELEVATED BP, DIZZINESS Emergency Attender: ALBA, 01/28/2020 ELEVATED BP, [facility] FAISALAttender: 12:51:00 AM EDT [facility] EMERGENCY SERVICE, Corpor ation XAdmitter: DAMARIS WILLIS ELEVATED BP, DIZZINESS Outpatient Attender: MHAW9 [facility] 09/05/2019 12:15:47 PM [facility]SI ([facility]) Patient admitted. Emergency H 08/30/2018 03:13:00 PM [facility] Outpatient Attender: Jonah 08/19/2018 02:39:00 PM SINUSIT IS Sundeep Schneider [facility] SINUSITIS Outpatient Attender: Narciso Zapata 08/18/2018 10:26:00 AM CHAUNCEY [facility] HEADACHE Medications Medication Brand Start Product Dose Route Administrative Pharmacy [facility] Indications Reaction Description Data Name Date Form Instructions Instructions Source(s) Tylenol Tyleno 999 UNK active Tylenol We stcheste Infusion l 2020 mg Infusion r Count y (AD Infusi 12:19: (ADULT) or Healt h on (AD 15 PM GT 50 kg Care EDT 1000 mg IVPB Corpora esteban n Medication administered onsite Aspir-Low [id number] 05/11/2014 completed [place] (Aspirin) [81 12:00:00 AM County mg Tablet EC]: EDT Healt h Care 1 Tablet Oral Corpor ation DAILY Prilosec [id number] completed [facility] (Omeprazole) [facility] [20 mg]: 1 Health Ca re Capsule Oral Corpora tion DAILY Diclofenac Voltaren 999 oral discontinued Vo lta [place] Sodium 25 MG MG [facility] Delayed Release [facility] Care Oral Tablet Corporat ion Voltaren Spironolactone spironolactone 999 oral completed deonte [place] 25 MG Oral MG [facility] [Spironol] Corporati on spironolactone Spironolactone spironolactone 999 oral completed deonte [place] 25 MG Oral MG [place] [facility] [Spironol] Corporati on spironolactone Amlodipine 2.5 amlodipine 999 oral completed amlod [place] MG Oral Tablet MG ipine Coun ty [[facility]] Health Car e amlodipine Corporati on Diclofenac Voltaren 999 oral discontinued Vo lta [place] Sodium 25 MG MG [facility] Delayed Release Heal th Care Oral Tablet Corporat ion Voltaren Amlodipine 2.5 amlodipine 999 oral completed amlod [place] MG Oral Tablet MG ipine Coun ty [[facility]] Health Car e amlodipine Corporati on Diclofenac Voltaren 999 oral completed [place] Sodium 25 MG MG [facility] Delayed Release Heal th Care Oral Tablet Corporat ion Voltaren Albuterol [id number] completed [place] Sulfate [90 mcg Coun ty INHALER]: 1 Health C are PUFF Inhalation Nory oration 4 TIMES A DAY PRN sob valsartan 160 Valsartan [160 completed [place] MG Oral Tablet mg Tablet]: 1 [facility] Valsartan [160 Tablet Oral Health Care mg Tablet]: 1 DAILY IN Co rporation Tablet Oral EVENING DAILY IN EVENING Amlodipine 10 Amlodipine [10 completed [place] MG Oral Tablet mg Tablet]: 10 [facility] Amlodipine [10 MG Oral DAILY Health Care mg Tablet]: 10 Corpo ration MG Oral DAILY valsartan 80 MG valsartan 999 oral completed valsa [place] Oral Capsule MG rtan [facility] Care [facility] Spironolactone spironolactone 999 oral completed deonte [place] 25 MG Oral MG [facility] [Spironol] Corporati on spironolactone Amlodipine 2.5 amlodipine 999 oral completed amlod [place] MG Oral Tablet MG ipine Coun ty [[facility]] Health Car e amlodipine Corporati on Spironolactone Spironolactone completed [place] 25 MG Oral [25 mg Tablet]: [facility] Tablet 1 Tablet Oral Heal th Care Spironolactone DAILY IN C orporation [25 mg Tablet]: MORNING 1 Tablet Oral DAILY IN MORNING Insurance Providers Payer name Policy type Policy ID Covered Covered republican's Policy P rodríguez / Coverage republican ID relationship to Elizabeth Inf ormation type elizabeth BLUE CROSS [id number] SP [id number] SENIOR PLAN [facility] MEDICARE [id number] SP [id number] VIP UNK UNK UNK UNK NYMCRWP NYMCRWP UNK UNK UNK UNK UNK UNK HIP CREATIVE LEAD [id number] SP [id number] AFFINITY [id number] SP [id number] MEDICARE AFFINITY [id number] SP [id number] AFFINITY [id number] SP [id number] AFFINITY [id number] SP [id number] UNK UNK UNK UNK UNK UNK CREATIVE LEAD O [id number] HIP MONTE PT [facility] [id number] PT [id number] ESSENTIAL PLAN 1 HIP MCR [id number] PT [id number] 1 HIP MCR [id number] PT [id number] AFFINITY [id number] 01 [id number] AFFINITY [id number] 01 [id number] Problems, Conditions, and Diagnoses Code Display Name Description Problem Type Effective Data Sour ce(s) Dates Z88.8 Allergy status to ALLERGY STATUS TO Diagnosis 04/13/2020 [place] other drugs, OTH DRUG/MEDS/BIOL 12:48:00 AM [facility] [employer] medicaments and SUBST STATUS EDT Care [employer] substances status J44.9 Chronic CHRONIC Diagnosis 04/13/2020 [place] obstructive OBSTRUCTIVE 12:48:00 AM [facility] pulmonary disease, PULMONARY DISEASE, EDT Care unspecified UNSPECIFIED Corporation E78.00 Pure PURE Diagnosis 04/13/2020 [place] hypercholesterolem HYPERCHOLESTEROLEM 12:48:00 AM [facility] ia, unspecified IA, UNSPECIFIED EDT Care Corporation I10 Essential ESSENTIAL Diagnosis 04/13/2020 [place] (primary) (PRIMARY) 12:48:00 AM [facility] hypertension HYPERTENSION EDT Care Corporation R00.2 Palpitations PALPITATIONS Diagnosis 04/13/2020 [facility] r 12:48:00 AM [facility] EDT Care Corporation R07.9 Chest pain, CHEST PAIN, Diagnosis 04/13/2020 [place] unspecified UNSPECIFIED 12:48:00 AM [facility] EDT Care [facility] Z88.6 Allergy status to ALLERGY STATUS TO Diagnosis 03/14/2020 [place] analgesic agent ANALGESIC AGENT 12:07:00 PM [facility] status STATUS EDT Care [place] Z20.828 Contact with and CONTACT W AND Diagnosis 03/14/2020 [facility] muñoz (suspected) EXPOSURE TO OTH 12:07:00 PM [facility] exposure to other VIRAL COMMUNICABLE EDT Care viral communicable DISEASES Corpor ation diseases I43 Cardiomyopathy in CARDIOMYOPATHY IN Diagnosis 03/14/2020 [place] diseases DISEASES 12:07:00 PM [facility] classified CLASSIFIED EDT Care elsewhere ELSEWHERE Corporation I11.9 Hypertensive heart HYPERTENSIVE HEART Diagnosis 0 [place] disease without DISEASE WITHOUT 12:07:00 PM [facility] heart failure HEART FAILURE EDT Care Corporation R21 Rash and other RASH AND OTHER Diagnosis 03/14/2020 [place] nonspecific skin NONSPECIFIC SKIN 12:07:[facility]UPTION EDT Care [place] Z91.011 Allergy to milk ALLERGY TO MILK Diagnosis 01/28/2020 [place] products PRODUCTS 05:50:00 AM [facility] EDT Care [place] Y99.8 Other external OTHER EXTERNAL Diagnosis 01/28/2020 [place] cause status CAUSE STATUS 05:50:00 AM [facility] EDT Care [place] Y92.[address] in OTH PLACE IN OTH Diagnosis 01/28/2020 [place] other NON-INSTITUTIONAL 05:50:00 AM [facility] non-institutional RESIDENCE PLACE EDT Care residence as the Corporat ion place of occurrence of the external cause Z91.128 Patient's PATIENT'S INTENTL Diagnosis 01/28/2020 [place] ster intentional UNDRDOSE OF MEDS 05:50:00 AM [facility] underdosing of REGIMEN FOR OTH EDT Care medication regimen REASON Corpor ation for other reason T44.7X6A Underdosing of UNDERDOSING OF Diagnosis 01/28/2020 [place] beta-adrenorecepto BETA-ADRENORECEPTO 05:50:00 AM [facility] r antagonists, R ANTAGONISTS, EDT Care initial encounter INIT ENCNTR Corpor ation R42 Dizziness and DIZZINESS AND Diagnosis 01/28/2020 [facility] giddiness GIDDINESS 05:50:00 AM [facility] EDT Care Corporation R00.1 Bradycardia, BRADYCARDIA, Diagnosis 01/28/2020 [facility] r unspecified UNSPECIFIED 05:50:00 AM [facility] EDT Care Corporation R51 Headache HEADACHE Diagnosis 01/28/2020 [place] 05:50:00 AM [facility] hospital[facility] [place] 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 ID Date Data Source [id number] 02/18/2020 01:48:00 PM EDT [facility] Name Value Range Interpretation Description Data Sup porting Code Source(s) Document(s ) SARS [facility] coronavirus 2 RNA This lab was ordered by [facility] and reported by [facility]. ID Date Data Source [id number] 01/28/2020 07:15:00 AM EDT [facility] [id number] Corporation Name Value Range Interpretation Description Data Sup porting Code Source(s) Document(s ) Leukocytes 4.4 k/mm3 4.8-10 <td> 01/28/2020 [place] [#/volume] in .8 07:15</td><td> [facility] Blood by k/mm3 WBC [facility] Automated count </td><td><florentino Corporat ion raph styleCode="Bold "> 4.4 L </paragraph>
(4.8-10.8) k/mm3 </td> Erythrocytes 4.22 m/mm3 3.90-5 <td> 01/28/2020 [facility] r [#/volume] in .20 07:15</td><td> [facility] Blood m/mm3 RBC </td><td> [facility] [place] 4.22
(3.90-5.20) m/mm3 </td> Hemoglobin 12.8 g/dL 12.0-1 <td> 01/28/2020 [place] [Mass/volume] 6.0 07:15</td><td> County in Blood g/dL HGB </td><td> Health Care Corporation 12.8
(12.0-16.0) g/dL </td> Hematocrit 38.9 % 37.0-4 <td> 01/28/2020 [place] [Volume 7.0 % 07:15</td><td> County Fraction] of HCT </td><td> Health Care Blood by Corporation Automated count 38.9
(37.0-47.0) % </td> Erythrocyte 92.2 fL 81.0-9 <td> 01/28/2020 [place] mean 9.0 fL 07:15</td><td> County corpuscular MCV </td><td> Health Care volume [[employer] Corporation volume] by 92.2 Automated count
(81.0-99.0) fL </td> Erythrocyte 32.9 % 32.0-3 <td> 01/28/2020 [place] mean 6.0 % 07:15</td><td> County corpuscular MCHC </td><td> Health Care hemoglobin Corporation concentration 32.9 [Mass/volume] in Blood from
Fetus by (32.0-36.0) % Automated count </td> Erythrocyte 13.2 % 11.5-1 <td> 01/28/2020 [place] distribution 4.5 % 07:15</td><td> County width [Entitic RDW </td><td> Health Car e volume] by Corporation Automated count 13.2
(11.5-14.5) % </td> Erythrocyte 30.3 pg 27.0-3 <td> 01/28/2020 [place] mean 1.5 pg 07:15</td><td> County corpuscular MCH </td><td> Health Care hemoglobin Corporation [Entitic mass] 30.3 by Automated count
(27.0-31.5) pg </td> Platelet mean 11.5 fL 9.8-12 <td> 01/28/2020 [facility] r volume [Entitic .8 fL 07:15</td><td> County volume] in MPV </td><td> Health Care Blood by [facility] Automated count 11.5
(9.8-12.8) fL </td> Lymphocytes 41.4 % 17.0-5 <td> 01/28/2020 [place] [#/volume] in 0.0 % 01:28</td><td> [facility] Blood by Lymphocytes Health Care Automated count </td><td> [place] 41.4
(17.0-50.0) % </td> Platelets 180 k/mm3 160-41 <td> 01/28/2020 [place] [#/volume] in 0 07:15</td><td> [facility] Blood by k/mm3 Platelet Count Health Care Automated count </td><td> [place] 180
(160-410) k/mm3 </td> Basophils+Eosin 1.4 % 0.0-5. <td> 01/28/2020 [facility] ophils+Monocyte 0 % 01:28</td><td> [facility] s [#/volume] in Eosinophils Health Care Blood by </td><td> [facility] Automated count 1.4
(0.0-5.0) % </td> Basophils 0.2 % 0.0-2. <td> 01/28/2020 [place] [#/volume] in 0 % 01:28</td><td> [facility] Blood by Basophils Health Care Automated count </td><td> [place] 0.2
(0.0-2.0) % </td> Monocytes/Leuko 8.9 % 0.0-11 <td> 01/28/2020 [facility] cytes [Pure .0 % 01:28</td><td> [facility] number Monocytes. Health Care fraction] in </td><td> Corporation Blood by Automated count 8.9
(0.0-11.0) % </td> Neutrophils [#] 47.9 % 40.0-7 <td> 01/28/2020 [facility] in Body fluid 6.0 % 01:28</td><td> [facility] by Manual count Neutrophils Health Care </td><td> [place] 47.9
(40.0-76.0) % </td> Immature 0.2 % 0.0-0. <td> 01/28/2020 [place] granulocytes/10 5 % 01:28</td><td> County 0 leukocytes in IG% </td><td> [facility] Blood by [facility] Automated count 0.2
(0.0-0.5) %
The IG fraction represents metamyelocytes, myelocytes and/or
promyelocytes and is only reported as part of the automated
differential when found at a percentage of less than 6.
If higher than 6%, a manual differential will be performed.

(0.0-0.5) % </td> Glucose 81 mg/dL 70-105 <td> 01/28/2020 [place] [Mass/volume] mg/dL 07:15</td><td> County in Blood Glucose-Serum Health [facility] </td><td> [place] 81
(70-105) mg/dL </td> Chloride 108 mEq/L 98-107 <td> 01/28/2020 [place] [Moles/volume] mEq/L 07:15</td><td> County in Serum or Chloride Health Care Plasma </td><td><florentino [place] raph styleCode="Bold "> 108 H </paragraph>
(98-107) mEq/L </td> Potassium 3.9 mEq/L 3.5-5. <td> 01/28/2020 [place] [Moles/volume] 1 07:15</td><td> County in Serum or mEq/L Potassium-Serum Health Care Plasma </td><td> [place] 3.9
(3.5-5.1) mEq/L </td> Sodium 141 mEq/L 135-14 <td> 01/28/2020 [place] [Moles/volume] 5 07:15</td><td> County in Serum or mEq/L Sodium-Serum Health Care Plasma </td><td> [place] 141
(135-145) mEq/L </td> Carbon dioxide, 26 mEq/L 22-30 <td> 01/28/2020 [facility] total mEq/L 07:15</td><td> [facility] [Moles/volume] CO2 </td><td> Health Car e in Serum or Corporation Plasma 26
(22-30) mEq/L </td> Urea nitrogen 8 mg/dL 6-22 <td> 01/28/2020 [facility] r [Mass/volume] mg/dL 07:15</td><td> County in Blood BUN </td><td> Health Care [place] 8
(6-22) mg/dL </td> Aspartate 23 U/L 4-35 <td> 01/28/2020 [place] aminotransferas U/L 01:28</td><td> County e [Enzymatic AST (SGOT) Health Care activity/volume </td><td> [place] ] in Serum or Plasma 23
(4-35) U/L </td> Creatinine 0.87 mg/dL 0.57-1 <td> 01/28/2020 [place] [Moles/volume] .11 07:15</td><td> County in Serum or mg/dL Creatinine. Health Care Plasma </td><td> [place] 0.87
(0.57-1.11) mg/dL </td> Alanine 18 U/L 6-55 <td> 01/28/2020 [place] aminotransferas U/L 01:28</td><td> County e [Enzymatic ALT (SGPT) Health Care activity/volume </td><td> [place] ] in Serum or Plasma 18
(6-55) U/L </td> Proteins - 7.5 g/dL 6.4-8. <td> 01/28/2020 [place] Total 3 g/dL 01:28</td><td> [facility] Proteins - Health Care Total Corporation </td><td> 7.5
(6.4-8.3) g/dL </td> Albumin 4.5 g/dL 3.4-4. <td> 01/28/2020 [place] [Mass/volume] 8 g/dL 01:28</td><td> County in Serum or Albumin Health Care Plasma </td><td> [facility] 4.5
(3.4-4.8) g/dL </td> Bilirubin.total 0.4 mg/dL 0.2-1. <td> 01/28/2020 [facility] [Mass/volume] 3 01:28</td><td> [facility] in Blood mg/dL Bilirubin - [facility] Total [facility] </td><td> 0.4
(0.2-1.3) mg/dL </td> Calcium 9.3 mg/dL 8.6-10 <td> 01/28/2020 [place] [Mass/volume] .2 07:15</td><td> [facility] in Blood mg/dL Calcium [facility] </td><td> [facility] 9.3
(8.6-10.2) mg/dL </td> Hemolysis index No <td> 01/28/2020 [facility] of Serum or Hemolysis 07:15</td><td> [facility] Plasma Hemolysis Index [facility] </td><td> [facility] No Hemolysis
</td> Anion gap in 7 mEq/L 7-13 <td> 01/28/2020 [place] Serum or Plasma mEq/L 07:15</td><td> [facility] Anion Gap [facility] </td><td> [facility] 7
(7-13) mEq/L </td> Globulin 3.0 gm/dL 2.9-4. <td> 01/28/2020 [place] [Mass/volume] 0 01:28</td><td> [facility] in Serum gm/dL Globulin [facility] </td><td> [facility] 3.0
(2.9-4.0) gm/dL </td> aPTT panel - 27.2 secs 25.0-3 <td> 01/28/2020 [place] Platelet poor 2.0 01:28</td><td> [facility] plasma secs Partial [facility] Thromboplastin [facility] Time </td><td> 27.2
(25.0-32.0) secs </td> Lipemic index No Lipemia <td> 01/28/2020 [facility] er of Serum or 07:15</td><td> [facility] Plasma Lipemia Index Health Care </td><td> [facility] No Lipemia
</td> Prothrombin 10.5 secs 9.8-12 <td> 01/28/2020 [place] time (PT) .0 01:28</td><td> [facility] secs Prothrombin Health Care Time. Kerline </td><td> 10.5
(9.8-12.0) secs </td> Icteric index Not <td> 01/28/2020 [facility] r of Serum or Icteric 07:15</td><td> [facility] Plasma Icteric Index Health Care </td><td> [facility] Not Icteric
</td> ID Date Data Source [id number] 01/28/2020 02:27:00 AM EDT [facility] [id number] Corporation Name Value Range Interpretation Description Data Sup porting Code Source(s) Document(s ) Angio (PACSIMAGE <td> 01/28/2020 [place] Head/Ne ) 02:27</td><td> [facility] ck CT Final Result Angio Head/Neck Health Ca re Name: FARHEEN PULLIAM, </td><td><paragr LUKASZ MRN: [id number] Sex: F styleCode="Itali : 1955 cs">(PACSIMAGE Location: F Admitting Physician: )</paragraph><br EMERGENCY SERVICE />
Final Requesting Result Physician: JULES

SHAINA Exam: Name: CT ANGIO HERACLIO, HEAD/NECK LUKASZ 01/28/2020 02:47
MRN: CLINICAL [id number] Sex: F STATEMENT:
Aneurysm. : COMPARISON: None. 1955 TECHNIQUE: Location: F CT scan of the
head: CT of the Admitting head without Physician: intravenous EMERGENCY contrast SERVICE performed with
axial image Requesting acquisition. Physician: JULES Buttlanar SHAINA reconstructions

were performed.. Exam: CT ANGIO CT HEAD/NECK angiography head 01/28/2020 02:47 and neck: CT angiography of

the head and neck CLINICAL is performed STATEMENT: utilizing 1 mm Aneurysm. axial images

after the COMPARISON: uneventful None. intravenous

administration TECHNIQUE: of approximately

[address] scan of Omnipaque 350 the head: contrast
CT material. of the head Three-dimensiona without maximum intravenous intensity contrast projection performed with reconstructions axial are provided for
image interpretation. acquisition. Up-to-date CT Multiplanar equipment using reconstructions Automatic were performed.. Exposure Control, dose

modulation, and CT angiography iterative head and neck: reconstruction
dose reduction CT angiography software was of the head and employed. The neck is total study DLP performed is approximately utilizing 1 1883.4 mGy-cm.
FINDINGS: mm axial images Noncontrast CT after the head: No acute uneventful intracranial intravenous hemorrhage, administration midline shift, or
hydrocephalus. of There is approximately subcortical and 100 mL of periventricular Omnipaque 350 cerebral white contrast matter material. hypodensity Three-dimensiona likely reflecting
moderate chronic maximum microvascular intensity ischemic changes. projection There is near reconstructions complete are provided for opacification of
the left maxillary sinus. interpretation. Hyperdense material can be

seen within the Up-to-date CT left maxillary equipment using sinus, possibly Automatic secondary to Exposure inspissated Control, dose secretions.
Underlying fungal modulation, and infection must be iterative excluded reconstruction clinically. The dose reduction remainder of the software visualized
was paranasal sinuses employed. are well aerated.
The mastoid air The total study cells are DLP is well-aerated. The approximately visualized orbits 1883.4 mGy-cm. are unremarkable.

There is no FINDINGS: displaced

calvarial Noncontrast CT fracture. CT head: angiography of
No the neck: acute Origins of the intracranial great vessels of hemorrhage, the neck are midline shift, grossly patent. or The right hydrocephalus. vertebral artery
is dominant.. There is There is no subcortical and evidence of periventricular hemodynamically cerebral white significant matter stenosis at the
common carotid hypodensity artery likely bifurcations reflecting bilaterally moderate chronic utilizing NASCET microvascular criteria. 6 mm
hypodense ischemic structure within changes. There the left palatine is near complete tonsil (series opacification of 501 image 367) the with mild
left enhancement maxillary sinus. peripherally Hyperdense probably material can be vascular. This seen within is indeterminate
and may reflect a the left tonsillar crypt maxillary sinus, in the absence possibly of secondary to symptomatology. inspissated Further clinical secretions. correlation is
suggested as a Underlying small developing fungal infection peritonsillar/ton must be excluded sillar abscess clinically. The cannot be
excluded in the remainder of appropriate the visualized clinical setting. paranasal CT sinuses are well angiography aerated. [place] of [place]:
The There is no mastoid air evidence of cells are proximal branch well-aerated. occlusion or The visualized high-grade orbits proximal stenosis
are to the visualized unremarkable. vessels of the There is no zuni of displaced [place]. The calvarial basilar artery is fracture. patent. Posterior

communicating CT angiography arteries are of the neck: present
bilaterally. The Origins of the left vertebral great vessels of artery terminates the neck are as the grossly patent. posterior
inferior The right cerebellar vertebral artery artery, normal is dominant.. variant. There There is no is a diminutive evidence vertebrobasilar
of system likely hemodynamically related to significant dominant stenosis at the posterior common carotid communicating
arteries artery bilaterally. No bifurcations evidence of bilaterally aneurysm or large utilizing NASCET arteriovenous criteria. 6 malformation.
Please note mm hypodense that aneurysms structure within and arteriovenous the left malformations palatine tonsil less than 3 mm (series may or may not be
501 detected image 367) with utilizing CT mild enhancement angiographic peripherally technique. probably IMPRESSION: vascular. CT scan of the
head: 1. No This is evidence of acute indeterminate intracranial and may reflect hemorrhage, mass a tonsillar effect or shift crypt in the of midline
structures. 2. absence of Moderate chronic symptomatology. macrovascular Further clinical ischemic changes. correlation is Chronic ischemic suggested changes lower
as sensitivity for a small detecting acute developing infarct. MRI of peritonsillar/to the brain may be nsillar abscess obtained for cannot further
be evaluation if excluded in the there is appropriate clinical concern clinical for acute setting. infarct. 3.

Near complete CT angiography opacification of zuni of the left [place]: maxillary sinus
with hyperdense There is no material. evidence of Internal proximal branch hyperdensities occlusion or may reflect high-grade inspissated
secretions versus proximal fungal stenosis to the colonization. visualized Further clinical vessels of the correlation is zuni of suggested.
CT angiography of [place]. The the neck: 1. No basilar artery evidence of is patent. hemodynamically Posterior significant communicating stenosis at the
common carotid arteries are artery present bifurcations bilaterally. The bilaterally, left vertebral utilizing NASCET artery criteria. 2. 6 terminates mm hypodense
structure within as the posterior the left palatine inferior tonsil with cerebellar mild enhancement artery, normal peripherally variant. probably
vascular. This is There is a indeterminate diminutive and may reflect a vertebrobasilar tonsillar crypt system likely in the absence of related to symptomatology.
Further clinical dominant correlation is posterior suggested as a communicating small developing arteries peritonsillar/to bilaterally. No nsillar abscess evidence cannot be
of excluded in the aneurysm or appropriate large clinical setting. arteriovenous CT malformation. angiography Please note [place]:
No evidence of that aneurysms proximal branch and occlusion or arteriovenous high-grade malformations proximal less than 3 mm stenosis to the
visualized may or may not vessels of the be detected [place]. utilizing CT angiographic Resident technique. Radiologist: Manuel

< Lorena WELSH br/> Resident IMPRESSION: Radiologistt

Attending CT scan of Radiologist: Muriel the head: Mary WELSH
1. Finalizing No evidence of Radiologist: Muriel acute Mary WELSH intracranial Transcribed Date: hemorrhage, mass 01/28/2020 03:55 effect Finalized Date:
or 01/28/2020 10:00 shift of midline structures.
2. Moderate chronic macrovascular ischemic changes. Chronic ischemic
changes lower sensitivity for detecting acute infarct. MRI of
the brain may be obtained for further evaluation if there is
clinical concern for acute infarct.
3. Near complete opacification of the left maxillary sinus with
hyperdense material. Internal hyperdensities may reflect inspissated
secretions versus fungal colonization. Further clinical correlation
is suggested.

CT angiography of the neck:
1. No evidence of hemodynamically significant stenosis at the
common carotid artery bifurcations bilaterally, utilizing NASCET
criteria.
2. 6 mm hypodense structure within the left palatine tonsil with
mild enhancement peripherally probably vascular. This is indeterminate
and may reflect a tonsillar crypt in the absence of symptomatology.
Further clinical correlation is suggested as a small developing
peritonsillar/to nsillar abscess cannot be excluded in the appropriate
clinical setting.

CT angiography [place]:
No evidence of proximal branch occlusion or high-grade proximal
stenosis to the visualized vessels of the [facility] [place].

< br/>

<b r/> Resident Radiologist: Manuel Carrillo MD Resident Radiologistt
Attending Radiologist: Muriel Hernandez MD
Finalizing Radiologist: Muriel Hernandez MD
Transcribed Date: 01/28/2020 03:55
Finalized Date: 01/28/2020 10:00

</td> ID Date Data Source [id number] 01/28/2020 01:28:00 AM EDT [facility] [id number] [employer] Name Value Range Interpretation Description Data Source(s ) Supporting Code Document(s ) Antibody NEG <td> [place] Screen 01/28/2020 [facility] 01:28</td><td> Care Antibody [employer] Screen </td><td> NEG
</td> ABO-Rh Type O POS <td> [place] 01/28/2020 [facility] 01:28</td><td> Care ABO-Rh Type Corporation </td><td> O POS
</td> Specimen 01/31/20 <td> [place] expiration 20 23:59 01/28/2020 [facility] date of Blood 01:28</td><td> Care Specimen Corporation Expiration Date </td><td> 01/31/2020 23:59
</td> ID Date Data Source [id number] 01/28/2020 12:00:00 AM EDT [facility] Name Value Range Interpretation Code Description Data Awilda rce(s) Supporting Document(s ) SARS-COV-2 [place] RNA RT-PCR [facility] This lab was ordered by [facility] and reported by [facility]. ID Date Data Source [id number] 01/21/2020 10:15:00 PM EDT [facility] Name Value Range Interpretation Description Data Sup porting Code Source(s) Document(s ) SARS [facility] coronavirus 2 RNA This lab was ordered by [facility] and reported by [facility]. ID Date Data Source [id number] 12/19/2019 06:01:00 PM EDT [facility] Name Value Range Interpretation Description Data Sup porting Code Source(s) Document(s ) SARS [facility] CORONAVIRUS 2 RNA This lab was ordered by [facility] and reported by [facility]. ID Date Data Source Urinalysis 08/30/2018 05:35:00 PM EST [facility] Name Value Range Interpretation Description Data Sup porting Code Source(s) Document(s ) UNK CLEAR <content Saint styleCode="Hellen Abhijit d">Urine Medical [facility] </content>JEROME R <content styleCode="Sarahi lics"> (CLEAR )</content> Color of Urine YELLOW <content Saint styleCode="Hellen Abhijit d">Color, Medical Urine Center </content>YELL OW <content styleCode="Sarahi lics"> (YELLOW )</content> Glucose NEGATIVE <content Saint [Mass/volume] styleCode="Hellen Abhijit in Urine by d">Urine Medical Test strip Glucose Center </content>NEGA TIVE MG/DL<content styleCode="Sarahi lics"> (NEGATIVE MG/DL)</conten t> Specific 1.015-1.02 Below low normal <content Saint gravity of 5 styleCode="Hellen Lacey Urine by Test d">Urine Medical strip Specific Center [place] </content><= 1.005 L<content styleCode="Sarahi lics"> (1.015-1.025 )</content> UNK NEGATIVE <content Saint styleCode="Hellen Manriquezs d">Urine Medical Bilirubin Center </content>NEGA TIVE <content styleCode="Sarahi lics"> (NEGATIVE )</content> Hemoglobin NEGATIVE <content Saint [Presence] in styleCode="Hellen Lacey Urine by Test d">Urine Blood Medical strip </content>NEGA Center TIVE <content styleCode="Sarahi lics"> (NEGATIVE )</content> Ketones NEGATIVE <content Saint [Mass/volume] styleCode="Hellen Manriquezs in Urine by d">Urine Medical Test strip Ketone Center </content>NEGA TIVE MG/DL<content styleCode="Sarahi lics"> (NEGATIVE MG/DL)</conten t> pH of Urine by 4.5-8.0 <content Saint Test strip styleCode="Hellen Manriquezs d">Urine pH Medical </content>7.0 Center NM<content styleCode="Sarahi lics"> (4.5-8.0 NM)</content> Nitrite NEGATIVE <content Saint [Presence] in styleCode="Hellen Lacey Urine by Test d">Urine Medical strip Nitrite Center </content>NEGA TIVE <content styleCode="Sarahi lics"> (NEGATIVE )</content> Leukocyte NEGATIVE <content Saint esterase styleCode="Hellen Manriquezs [Presence] in d">Urine Medical Urine by Test Leukocyte Center strip </content>TRAC E <content styleCode="Sarahi lics"> (NEGATIVE )</content> Protein NEGATIVE <content Saint [Mass/volume] styleCode="Hellen Manriquezs in Urine by d">Urine Medical Test strip Protein Center </content>NEGA TIVE MG/DL<content styleCode="Sarahi lics"> (NEGATIVE MG/DL)</conten t> UNK 0-3 <content Saint styleCode="Hellen Abhijit d">Urine Red Medical Blood Cell Center </content>0-3 HPF<content styleCode="Sarahi lics"> (0-3 HPF)</content> Urobilinogen 0.2-1.0 <content Saint [Units/volume] styleCode="Hellen Lacey in Urine by d">Urine Medical Test strip Urobilinogen Center </content>0.2 MG/DL<content styleCode="Sarahi lics"> (0.2-1.0 MG/DL)</conten t> UNK 0-3 <content Saint styleCode="Hellen Abhijit d">Urine White Medical Blood Cell Center </content>3-5 HPF<content styleCode="Sarahi lics"> (0-3 HPF)</content> UNK NEGATIVE <content Saint styleCode="Hellen Abhijit d">Urine Medical Bacteria Center </content>FEW HPF<content styleCode="Sarahi lics"> (NEGATIVE HPF)</content> UNK <content Saint styleCode="Hellen Abhijit d">Epithelial Medical Cell Center </content>5 - 10 LPF (Reference Range: not available)<br/ > ID Date Data Source HematologyRou 08/30/2018 04:16:00 PM EST [facility] Name Value Range Interpretation Description Data Sup porting Code Source(s) Document(s ) Leukocytes 4.4-11.0 <content Saint [#/volume] in styleCode="Bold Abhijit Blood by ">White Blood Medical Automated count Cell Count Center </content>9.80 KCUMM<content styleCode="Ital ics"> (4.4-11.0 KCUMM)</content > Erythrocytes 4.0-5.1 Below low normal <content Saint [#/volume] in styleCode="Bold Abhijit Blood by ">Red Blood Medical Automated count Cell Count Center </content>3.98 MCUMM L<content styleCode="Ital ics"> (4.0-5.1 MCUMM)</content > Hemoglobin 12.3-16. Below low normal <content Saint [Mass/volume] in 0 styleCode="Bold Abhijit Blood ">Hemoglobin Medical </content>12.0 Center G/DL L<content styleCode="Ital ics"> (12.3-16.0 G/DL)</content> Erythrocyte mean 80.0-100 <content Saint corpuscular .0 styleCode="Bold Abhijit volume [Entitic ">Mean Medical volume] by Corpuscular Center Automated count Volume </content>91.5 FL<content styleCode="Ital ics"> (80.0-100.0 FL)</content> Erythrocyte 11.5-14. <content Saint distribution 5 styleCode="Bold Abhijit width [Ratio] by ">Red Cell Medical Automated count Distribution Center Width </content>13.4 %<content styleCode="Ital ics"> (11.5-14.5 %)</content> Erythrocyte mean 26.0-34. <content Saint corpuscular 0 styleCode="Bold Abhijit hemoglobin ">Mean Medical [Entitic mass] Corposcular Center by Automated Hemoglobin count </content>30.2 PG<content styleCode="Ital ics"> (26.0-34.0 PG)</content> Erythrocyte mean 32.0-37. <content Saint corpuscular 0 styleCode="Bold Abhijit hemoglobin ">Mean Corpus. Medical concentration Hgb Center [Mass/volume] by Concentration Automated count (MCHC) </content>33.0 G/DL<content styleCode="Ital ics"> (32.0-37.0 G/DL)</content> Hematocrit 36.0-46. <content Saint [Volume 0 styleCode="Bold Abhijit Fraction] of ">Hematocrit Medical Blood by </content>36.4 Center Automated count %<content styleCode="Ital ics"> (36.0-46.0 %)</content> Platelets 130-400 <content Saint [#/volume] in styleCode="Bold Abhijit Blood by ">Platelet Medical Automated count Count Center </content>212 KCUMM<content styleCode="Ital ics"> (130-400 KCUMM)</content > Platelet mean 8.0-11.0 Above high <content Saint volume [Entitic normal styleCode="Bold Abhijit volume] in Blood ">Mean Platelet Medical by Automated Volume Center count </content>11.9 FL H<content styleCode="Ital ics"> (8.0-11.0 FL)</content> UNK 0 <content Saint styleCode="Bold Abhijit ">Nucleated Red Medical Blood Cell Center </content>0.0 /100<content styleCode="Ital ics"> (0 /100)</content> UNK 0.0 <content Saint styleCode="Bold Abhijit ">Nucleated Red Medical Blood Cell Center Count </content>0.00 KCUMM<content styleCode="Ital ics"> (0.0 KCUMM)</content > ID Date Data Source Liver Profile 08/30/2018 04:15:00 PM EST [facility] Name Value Range Interpretation Description Data Sup porting Code Source(s) Document(s ) Aspartate 14-36 <content Saint aminotransferase styleCode="Bold"> Jus hs [Enzymatic Aspartate Medical activity/volume] Aminotransferase Center in Serum or Plasma (AST) </content>25 IU/L<content styleCode="Italic s"> (14-36 IU/L)</content> Bilirubin.total 0.2-1.3 <content Saint [Mass/volume] in styleCode="Bold"> Jus hs Serum or Plasma Bilirubin Total Medical </content>0.4 Center MG/DL<content styleCode="Italic s"> (0.2-1.3 MG/DL)</content> Alanine 7-30 <content Saint aminotransferase styleCode="Bold"> Jus hs [Enzymatic Alanine Medical activity/volume] Aminotransferase Center in Serum or Plasma (ALT) </content>19 IU/L<content styleCode="Italic s"> (7-30 IU/L)</content> Alkaline 38-126 <content Saint phosphatase styleCode="Bold"> Abhijit [Enzymatic Alkaline Medical activity/volume] Phosphatase (ALP) Cente r in Serum or Plasma </content>81 IU/L<content styleCode="Italic s"> (38-126 IU/L)</content> UNK 0.0-0.3 <content [facility] styleCode="Bold"> Abhijit Bilirubin, Direct Medical </content>< 0.2 Center MG/DL<content styleCode="Italic s"> (0.0-0.3 MG/DL)</content> Albumin 3.5-5.0 <content Saint [Mass/volume] in styleCode="Bold"> Jus hs Serum or Plasma Albumin Medical </content>4.5 Center G/DL<content styleCode="Italic s"> (3.5-5.0 G/DL)</content> ID Date Data Source GFR(Creatinine) 08/30/2018 04:15:00 PM [facility] Name Value Range Interpretation Code Description Data Awilda rce(s) Supporting Document(s ) UNK > 60 <content [facility] styleCode="Bold"> Medical Cent er EGFR </content>72 GFR<content styleCode="Italic s"> (> 60 GFR)</content> ID Date Data Source [id number] 08/30/2018 04:15:00 PM [facility] Name Value Range Interpretation Description Data Sup porting Code Source(s) Document(s ) Lipase 23-300 Above high normal <content [facility] [Enzymatic styleCode="Bold Medical activity/vo ">Lipase Center lume] in </content>828 Serum or IU/L H<content Plasma styleCode="Ital ics"> (23-300 IU/L)</content> UNK 30-110 Above high normal <content [place] s styleCode="Bold Medical ">Amylase Center </content>184 IU/L H<content styleCode="Ital ics"> (30-110 IU/L)</content> ID Date Data Source BMP 08/30/2018 04:15:00 PM [facility] Name Value Range Interpretation Description Data Sup porting Code Source(s) Document(s ) Carbon dioxide, 22-30 <content Saint total styleCode="Bold"> Abhijit [Moles/volume] in Carbon Dioxide Medical Serum or Plasma </content>27 Center MEQ/L<content styleCode="Italic s"> (22-30 MEQ/L)</content> Chloride 98-107 <content Saint [Moles/volume] in styleCode="Bold"> [facility] Serum or Plasma Chloride Medical </content>106 Center MEQ/L<content styleCode="Italic s"> (98-107 MEQ/L)</content> Potassium 3.5-5.3 <content Saint [Moles/volume] in styleCode="Bold"> [facility] Serum or Plasma Potassium Medical </content>3.8 Center MEQ/L<content styleCode="Italic s"> (3.5-5.3 MEQ/L)</content> Sodium 137-145 <content Saint [Moles/volume] in styleCode="Bold"> [facility] Serum or Plasma Sodium Medical </content>141 Center MEQ/L<content styleCode="Italic s"> (137-145 MEQ/L)</content> Calcium 8.4-10. <content Saint [Mass/volume] in 2 styleCode="Bold"> Jus hs Serum or Plasma Calcium Medical </content>9.3 Center MG/DL<content styleCode="Italic s"> (8.4-10.2 MG/DL)</content> UNK > 60 <content Saint styleCode="Bold"> Abhijit EGFR </content>72 Medical GFR<content Center styleCode="Italic s"> (> 60 GFR)</content> UNK 7-17 Above high <content Saint normal styleCode="Bold"> Abhijit BUN </content>21 Medical MG/DL H<content Center styleCode="Italic s"> (7-17 MG/DL)</content> Glucose 74-106 <content Saint [Mass/volume] in styleCode="Bold"> Jus hs Serum or Plasma Glucose Medical </content>90 Center MG/DL<content styleCode="Italic s"> (74-106 MG/DL)</content> Aspartate 14-36 <content Saint aminotransferase styleCode="Bold"> Jus hs [Enzymatic Aspartate Medical activity/volume] Aminotransferase Center in Serum or Plasma (AST) </content>25 IU/L<content styleCode="Italic s"> (14-36 IU/L)</content> Creatinine 0.5-1.3 <content Saint [Mass/volume] in styleCode="Bold"> Jus hs Serum or Plasma Creatinine Medical </content>1.0 Center MG/DL<content styleCode="Italic s"> (0.5-1.3 MG/DL)</content> Alanine 7-30 <content Saint aminotransferase styleCode="Bold"> Jus hs [Enzymatic Alanine Medical activity/volume] Aminotransferase Center in Serum or Plasma (ALT) </content>19 IU/L<content styleCode="Italic s"> (7-30 IU/L)</content> Alkaline 38-126 <content Saint phosphatase styleCode="Bold"> Abhijit [Enzymatic Alkaline Medical activity/volume] Phosphatase (ALP) Cente r in Serum or Plasma </content>81 IU/L<content styleCode="Italic s"> (38-126 IU/L)</content> Albumin 3.5-5.0 <content Saint [Mass/volume] in styleCode="Bold"> Jus hs Serum or Plasma Albumin Medical </content>4.5 Center G/DL<content styleCode="Italic s"> (3.5-5.0 G/DL)</content> Bilirubin.total 0.2-1.3 <content Saint [Mass/volume] in styleCode="Bold"> [facility] hs Serum or Plasma Bilirubin Total Medical </content>0.4 Center MG/DL<content styleCode="Italic s"> (0.2-1.3 MG/DL)</content> Procedure Social History Code Duration Value Status Description Data Source(s ) Smoking 08/30/2018 Denies Ever completed Denies Ever Smoked [facility] Abhijit 04:25:00 PM EST Smoked Medical C enter Smoking 08/30/2018 Denies Ever completed Denies Ever Smoked [facility]it 03:58:00 PM EST Smoked Medical C enter Smoking 08/30/2018 Denies Ever completed Denies Ever Smoked [facility] Abh[facility]it 03:36:00 PM EST Smoked Medical C enter Smoking Former smoker completed Former smoker [facility] Vital Signs ID Date Data Source UNK Name Value Range Interpretation Code Description Data Source(s) height - cm Normal (applies to {} [facility] non-numeric results) [facility] wt - obtain Normal (applies to {} [facility] non-numeric results) [facility] weight - kg 86.3630 {} Normal (applies to 86.3630 {} [facility] non-numeric results) [facility] Diastolic blood 65 {} Normal (applies to 65 {} [place] pressure non-numeric results) [facility] Systolic blood 116 {} Normal (applies to 116 {} [place] pressure non-numeric results) [facility] First Respiration 16.0000 {} Normal (applies to 16.0000 {} [place] rate Set non-numeric results) [facility] Heart rate 54.0000 {} Normal (applies to 54.0000 {} [facility] non-numeric results) [facility] Body temperature 97.8000 {} Normal (applies to 97.8000 {} [place] non-numeric results) [facility] Body weight 90.361321 90.375095 kg [facility] hs Measured kg [facility] Body temperature 36.558876 36.295807 [facility] Respiratory rate 18 /min 18 /min [facility] Oxygen saturation 97 % 97 % [facility] in Arterial blood [facility] by Pulse oximetry Heart rate 72 /min 72 /min [facility] Body height 172.409304 172.3267[address] [facility] Diastolic blood 77 mm[Hg] 77 mm[Hg] [facility] pressure [facility] Systolic blood 140 mm[Hg] 140 mm[Hg] [facility] Body mass index 30.1 kg/m2 30.1 kg/m2 [facility] (BMI) [Ratio] Medical Adal[address] ter Patient Treatment Plan of Care Planned Activity Planned Date Details Description Data Source (s) Tylenol Infusion (AD 03/14/2020 12:19:15 [facility] EDT [facility]
--- NOTE | 2020-04-17 01:52 | PDOC ---
History of Present Illness - General Chief Complaint: Blood Pressure Problem Stated Complaint: BP PROBLEMS Time Seen by Provider: 04/17/20 01:26 History Source: Patient - History of Present Illness Initial Comments: 04/17/20 03:37 65-year-old female reports that she is having palpitation and chest tightness prior to arrival with headache. Patient reports that she checked her blood pressure at that time it was 175/98. Patient reports that she is extremely anxious of her recent diagnosis of stage III kidney disease and cardiomegaly. Patient seen in this ER for similar complaints last seen in the ER on March 30, 2020. She had a negative work-up at that time. Denies shortness of breath chest pain, dizziness, diaphoresis, nausea, vomiting, diarrhea, abdominal pain, fever/chills patient reports that she took doses of her blood pressure medication prior to arrival. 04/17/20 03:39 Past History - Medical History Allergies/Adverse Reactions: Allergies Allergy/AdvReac Type Severity Reaction Status Date / Time metoclopramide HCl Allergy Severe Difficulty Verified 04/17/20 01:27 [From Reglan] Breathing morphine Allergy Severe Difficulty Verified 04/17/20 01:27 Breathing lactose Allergy Mild Verified 04/17/20 01:27 wheat Allergy Unknown Verified 04/17/20 01:27 Home Medications: Ambulatory Orders Amlodipine Besylate [Norvasc -] 10 mg PO DAILY 08/30/13 Nebivolol HCl [Bystolic] 5 mg PO DAILY 08/30/13 Valsartan [Diovan] 320 mg PO DAILY 08/30/13 Spironolactone 25 mg PO DAILY 01/14/15 Albuterol 0.083% Nebulizer Zaynab [Ventolin 0.083% Nebulizer Soln -] 1 neb NEB Q4H PRN #20 vial 08/12/15 Fluticasone Propionate [Flovent Hfa] 10.6 gm IH PRN 08/12/15 Oxycodone HCl/Acetaminophen [Oxycodone-Acetaminophen 10-325] 1 each PO DAILY 09/20/18 Ranitidine [Zantac -] 150 mg PO BID 09/20/18 Cyclosporine [Restasis] 1 each OP DAILY 02/16/19 Anemia: Yes Asthma: Yes Cancer: No Cardiac Disorders: Yes (Arrythmia) CVA: No COPD: Yes CHF: No Dementia: No Diabetes: No GI Disorders: Yes (GERD,Hyperplastic polyp) Disorders: No HTN: Yes Hypercholesterolemia: Yes Liver Disease: No Seizures: No Thyroid Disease: No - Surgical History Abdominal Surgery: No Appendectomy: Yes Cardiac Surgery: Yes (Cardiac Cath 2005, 2011,2016) Cholecystectomy: No Lung Surgery: No Neurologic Surgery: No Orthopedic Surgery: No - Immunization History Immunization Up to Date: Yes - Psycho-Social/Smoking History Smoking Status: Yes Smoking History: Never smoked Have you smoked in the past 12 months: No Number of Cigarettes Smoked Daily: 0 If you are a former smoker, when did you quit?: 2006 Information on smoking cessation initiated: No - Substance Abuse Hx (Audit-C & DAST Scrn) How often the patient has a drink containing alcohol: Never Score: In Men: 4 or > Positive; In Women: 3 or > Positive: 0 Screen Result (Pos requires Nsg. Audit-10AR): Negative In the last yr the pt used illegal drug/Rx for NonMed reason: No Score: Yes response is considered Positive: 0 Screen Result (Positive result requires Nsg. DAST-10): Negative Review of Systems - Review of Systems Able to Perform ROS?: Yes Is the patient limited French proficient: No *Physical Exam - Vital Signs Last Vital Signs Temp Pulse Resp BP Pulse Ox 98.5 F 66 18 121/64 100 04/17/20 01:25 04/17/20 01:25 04/17/20 01:25 04/17/20 01:25 04/17/20 01:25 - Physical Exam General Appearance: Yes: Appropriately Dressed Respiratory/Chest: positive: Lungs Clear, Normal Breath Sounds. negative: Chest Tender Cardiovascular: positive: Regular Rhythm, Regular Rate. negative: Tachycardia Gastrointestinal/Abdominal: positive: Normal Bowel Sounds, Soft Musculoskeletal: positive: Normal Inspection Extremity: positive: Normal Capillary Refill, Normal Inspection Integumentary: positive: Normal Color, Dry, Warm Neurologic: positive: Fully Oriented, Alert, Normal Mood/Affect ED Treatment Course - LABORATORY CBC & Chemistry Diagram: 04/17/20 02:24 04/17/20 02:24 Medical Decision Making - Medical Decision Making chest tightness P: cbc cmp bnp cardiac chest xray ekg Discharge - Discharge Information Problems reviewed: Yes Clinical Impression/Diagnosis: Chest tightness or pressure Condition: Fair Disposition: HOME - Follow up/Referral Referrals: Anthony Coffey MD [Primary Care Provider] - - Patient Discharge Instructions Patient Printed Discharge Instructions: How to Monitor Your Blood Pressure at Home Additional Instructions: Please follow-up with your policy writer typist and your primary care physician as soon as possible for blood pressure management. Return to the emergency room for any worsening symptoms - Post Discharge Activity
[2020-04-17 02:49] LABS: BASO % 0.3 % (0-2.0); EOS % 1.8 % (0-4.5); HEMATOCRIT 32.2 % (32.4-45.2); HEMOGLOBIN 10.8 GM/dL (10.7-15.3); LYMPH % 37.4 % (8-40); MCH 30.7 pg (25.7-33.7); MCHC 33.6 g/dl (32.0-36.0); MEAN CELL VOLUME 91.5 fl (80-96); MEAN PLT VOLUME 9.5 fl (7.5-11.1); MONO % 11.7 % (3.8-10.2); NEUT % 48.8 % (42.8-82.8); PLATELET COUNT 172 K/MM3 (134-434); RBC 3.52 M/mm3 (3.60-5.2); RDW 13.3 % (11.6-15.6); WHITE BLOOD COUNT 4.5 K/mm3 (4.0-10.0)
[2020-04-17 02:55] LABS: PROTHROMBIN TIME (PATIENT) 11.8 SEC (9.7-13.0)
[2020-04-17 02:58] LABS: ACTIVATED PTT 35.1 SECONDS (25.2-36.5)
[2020-04-17 03:18] LABS: ALBUMIN 3.7 g/dl (3.4-5.0); ALK PHOS 66 U/L (45-117); ANION GAP 10 MMOL/L (8-16); BILIRUBIN,TOTAL 0.5 mg/dL (0.2-1); CALCIUM 9.2 mg/dL (8.5-10.1); CHLORIDE 107 mmol/L (98-107); CO2 27 mmol/L (21-32); CREATININE 0.9 mg/dL (0.55-1.3); GLUCOSE,RANDOM 86 mg/dL (74-106); MAGNESIUM 2.1 mg/dL (1.8-2.4); N-TERMINAL BNP 24.8 pg/ml (5-125); POTASSIUM 3.8 mmol/L (3.5-5.1); SGOT/AST 18 U/L (15-37); SGPT/ALT 18 U/L (13-61); SODIUM 143 mmol/L (136-145)
[2020-04-17 03:59] VITALS: BP 110/62; PULSE 59
--- NOTE | 2020-04-17 11:08 | EKG ---
Test Reason : Blood Pressure : / mmHG Vent. Rate : 055 BPM Atrial Rate : 055 BPM P-R Int : 160 ms QRS Dur : 078 ms QT Int : 428 ms P-R-T Axes : 003 -12 030 degrees QTc Int : 409 ms SINUS BRADYCARDIA SEPTAL INFARCT (CITED ON OR BEFORE 12-AUG-2015) ABNORMAL ECG WHEN COMPARED WITH ECG OF 30-MAR-2020 02:28, CRITERIA FOR INFERIOR INFARCT ARE NO LONGER PRESENT ST NO LONGER DEPRESSED IN INFERIOR LEADS ST ELEVATION NOW PRESENT IN LATERAL LEADS T WAVE INVERSION NO LONGER EVIDENT IN INFERIOR LEADS T WAVE INVERSION NO LONGER EVIDENT IN LATERAL LEADS Confirmed by MD Kellie, Mak ([id number]) on 04/17/2020 11:08:37 AM Referred By: Confirmed By:Mak Hopkins MD
== END 2020-04-17 03:59 | disposition home or self-care (01) ==
LOC: JER 00:59
DX: R07.89 Other chest pain (principal)
CPT/HCPCS: 36415; 71046-TC-FY; 80053; 82550; 82553; 83735; 83880; 84484; 85025; 85610; 85730; 93005; 93010; 99285-25

== ENCOUNTER 2020-11-03 08:30 | Observation (INO) | payer BC ==
[2020-11-03 09:37] LABS: BASO % 0.4 % (0-2.0); EOS % 3.2 % (0-4.5); HEMATOCRIT 35.5 % (32.4-45.2); HEMOGLOBIN 12.1 GM/dL (10.7-15.3); LYMPH % 34.5 % (8-40); MCH 31.4 pg (25.7-33.7); MCHC 34.1 g/dl (32.0-36.0); MEAN PLT VOLUME 10.2 fl (7.5-11.1); MONO % 9.6 % (3.8-10.2); NEUT % 52.3 % (42.8-82.8); PLATELET COUNT 162 K/MM3 (134-434); RBC 3.86 M/mm3 (3.60-5.2); RDW 13.8 % (11.6-15.6); WHITE BLOOD COUNT 3.3 K/mm3 (4.0-10.0)
[2020-11-03 09:46] LABS: INR 0.96 (0.83-1.09); PROTHROMBIN TIME (PATIENT) 11.8 SEC (9.7-13.0)
[2020-11-03 09:49] LABS: ACTIVATED PTT 32.9 SECONDS (25.2-36.5)
[2020-11-03 09:53] LABS: CHLORIDE 107 mmol/L (98-107); SODIUM 141 mmol/L (136-145)
[2020-11-03 09:58] LABS: CALCIUM 9.2 mg/dL (8.5-10.1)
[2020-11-03 09:59] LABS: ANION GAP 5 MMOL/L (8-16); CO2 29 mmol/L (21-32); GLUCOSE,RANDOM 65 mg/dL (74-106); MAGNESIUM 2.3 mg/dL (1.8-2.4)
[2020-11-03 10:00] LABS: SGPT/ALT 18 U/L (13-61)
[2020-11-03 10:01] LABS: SGOT/AST 18 U/L (15-37)
[2020-11-03 10:02] LABS: BILIRUBIN,TOTAL 0.4 mg/dL (0.2-1); CREATININE 0.9 mg/dL (0.55-1.3); PHOSPHOROUS 3.7 mg/dL (2.5-4.9); TOT PROT 7.4 g/dl (6.4-8.2)
[2020-11-03 10:03] LABS: ALK PHOS 122 U/L (45-117)
[2020-11-03] MEDS ORDERED: ASPIRIN 81 MG CHEWABLE TABLETS PO ONE (10:26)
[2020-11-03] MEDS ORDERED: ACETAMINOPHEN 1000 MG/100 ML VIAL (NON FORMULARY) IVPB ONE (10:37)
[2020-11-03] MEDS ORDERED: ASPIRIN 81 MG CHEWABLE TABLETS ONE (10:49)
[2020-11-03] MEDS ORDERED: ACETAMINOPHEN INJECTION 100 ML IVPB ONE (10:50)
[2020-11-03 13:57] VITALS: BMI 23.5
[2020-11-03] MEDS ORDERED: ALBUTEROL SO4 0.083% IH SOL 2.5 MG/3 ML VIAL.NEB. NEB PRN (15:59)
[2020-11-03] MEDS ORDERED: PATIENT'S OWN MEDICATION (NON-FORMULARY) (Oxycodone Hcl/Acetaminophen [Oxycodone-Acetamino PO PRN (15:59)
[2020-11-03] MEDS ORDERED: ONDANSETRON 4 MG/2 ML VIAL IVPUSH PRN (16:00)
[2020-11-03] MEDS ORDERED: FLUTICASONE PROPIONATE IH SCH (16:00)
[2020-11-03] MEDS ORDERED: ACETAMINOPHEN 325 MG TABLET (FP) PO PRN (16:00)
[2020-11-03] MEDS ORDERED: PT OWN MED DRAWER 7, Y5N ONE (21:08)
[2020-11-03] MEDS ORDERED: FAMOTIDINE 20 MG TABLET PO SCH (22:00)
[2020-11-04] MEDS ORDERED: MELATONIN 5 MG TABLETS PO PRN (02:30)
[2020-11-04] MEDS ORDERED: ARTIFICIAL TEARS (POLYVINYL ALCOHOL) OPTH DROPS OU PRN (02:30)
[2020-11-04] MEDS: PANTOPRAZOLE 40 MG TABLET PO SCH ×2 (08:14→09:34)
[2020-11-04 09:30] VITALS: BP 136/76; PULSE 76; TEMP 97.8
[2020-11-04] MEDS ORDERED: ENOXAPARIN NA (PORCINE) 40 MG/0.4 ML DISP.SYRIN SQ SCH (10:00)
[2020-11-04] MEDS ORDERED: VALSARTAN 160 MG TABLET PO SCH ×2 (10:00)
[2020-11-04] MEDS ORDERED: amLODIPine BESYLATE 10 MG TABLET (FP) PO SCH (10:00)
[2020-11-04] MEDS ORDERED: metoPROLOL SUCCINATE 25 MG TAB.SR.24H (FP) PO SCH (10:00)
== END 2020-11-04 13:51 | disposition home or self-care (01) ==
LOC: JER 08:30 → UNDOADMOB 11:21 → JERBED 11:21 → J4W 13:41 → OBSVTOIN 16:00 → INTOOBSV 16:00 → JERBED 11-04 13:02 → J4W 11-04 13:02
PROVIDERS: ADMIT Internal Medicine
PROC: 3E023GC Introduction of Other Therapeutic Substance into Muscle, Percutaneous Approach (ICD-10-PCS; principal; 2020-11-04)
DX: I13.10 Hypertensive heart and chronic kidney disease without heart failure, with stage 1 through stage 4 chronic kidney disease, or unspecified chronic kidney disease (principal); R06.02 Shortness of breath; E78.5 Hyperlipidemia, unspecified; R53.1 Weakness; N18.9 Chronic kidney disease, unspecified; J45.909 Unspecified asthma, uncomplicated; R05 Cough; Z29.9 Encounter for prophylactic measures, unspecified; Z88.8 Allergy status to other drugs, medicaments and biological substances; Z88.6 Allergy status to analgesic agent; Z91.018 Allergy to other foods; Z87.442 Personal history of urinary calculi
CPT/HCPCS: 36415; 71046-TC-FY; 80053; 80061; 82550; 82962; 83721; 83735; 84100; 84443; 84484; 85025; 85610; 85730; 93005; 93010; 93970-TC; 96372; 99285-25; C9803; G0378; U0003; U0005

== ENCOUNTER 2020-11-17 22:52 | Emergency (ER) | payer BC ==
[2020-11-17 23:00] VITALS: BP 158/89; PULSE 74; TEMP 98.5; BMI 23.7
== END 2020-11-17 23:48 | disposition home or self-care (01) ==
LOC: SUPCPDRO 22:52 → JER 22:52
DX: M54.12 Radiculopathy, cervical region (principal); F41.9 Anxiety disorder, unspecified
CPT/HCPCS: 82962; 99285-25

== ENCOUNTER 2020-11-26 21:17 | Emergency (ER) | payer BC ==
[2020-11-26 21:37] VITALS: TEMP 98.6; BMI 23.4
[2020-11-26 22:42] LABS: BASO % 0.4 % (0-2.0); EOS % 2.2 % (0-4.5); HEMATOCRIT 34.9 % (32.4-45.2); HEMOGLOBIN 11.8 GM/dL (10.7-15.3); LYMPH % 40.3 % (8-40); MCH 31.2 pg (25.7-33.7); MCHC 33.9 g/dl (32.0-36.0); MEAN CELL VOLUME 91.9 fl (80-96); MEAN PLT VOLUME 9.9 fl (7.5-11.1); MONO % 10.3 % (3.8-10.2); NEUT % 46.8 % (42.8-82.8); PLATELET COUNT 180 K/MM3 (134-434); RDW 13.7 % (11.6-15.6); WHITE BLOOD COUNT 4.5 K/mm3 (4.0-10.0)
[2020-11-26 23:01] LABS: CHLORIDE 107 mmol/L (98-107); SODIUM 138 mmol/L (136-145)
[2020-11-26 23:03] LABS: ALBUMIN 3.8 g/dl (3.4-5.0); ANION GAP 6 MMOL/L (8-16); BLOOD UREA NITROGEN 10.5 mg/dL (7-18); CALCIUM 8.6 mg/dL (8.5-10.1); CO2 25 mmol/L (21-32); GLUCOSE,RANDOM 86 mg/dL (74-106)
[2020-11-26 23:06] LABS: SGOT/AST 25 U/L (15-37); SGPT/ALT 26 U/L (13-61)
[2020-11-26 23:07] LABS: CREATININE 0.8 mg/dL (0.55-1.3)
[2020-11-26 23:08] LABS: BILIRUBIN,TOTAL 0.3 mg/dL (0.2-1)
[2020-11-26 23:09] LABS: ALK PHOS 119 U/L (45-117)
[2020-11-27 03:34] VITALS: BP 136/87; PULSE 65
== END 2020-11-27 03:37 ==
LOC: JER 21:17
DX: R07.9 Chest pain, unspecified (principal)
CPT/HCPCS: 36415; 71046-TC-FY; 80053; 82550; 84484; 85025; 93005; 93010; 99285-25

== ENCOUNTER 2021-04-13 22:09 | Emergency (ER) | payer BC, OTHER ==
[2021-04-13 22:16] VITALS: TEMP 97.8; BMI 24.0
[2021-04-13] MEDS ORDERED: methylPREDNISolone NA SUCC 125 MG/2 ML VIAL IVPUSH ONE (22:29)
[2021-04-13] MEDS ORDERED: FAMOTIDINE 20 MG/50 ML IVPB 20 MG/50 ML MG IVPB ONE ×2 (22:31→22:32)
[2021-04-13] MEDS ORDERED: methylPREDNISolone NA SUCC 125 MG/2 ML VIAL ONE (22:32)
[2021-04-13 23:50] VITALS: BP 155/88; PULSE 72
== END 2021-04-13 23:50 | disposition home or self-care (01) ==
LOC: JER 22:09
PROC: 3E033GC Introduction of Other Therapeutic Substance into Peripheral Vein, Percutaneous Approach (ICD-10-PCS; principal; 2021-04-13)
DX: T78.40XA Allergy, unspecified, initial encounter (principal)
CPT/HCPCS: 96365; 96375; 99284-25

== ENCOUNTER 2021-06-17 18:38 | Emergency (ER) | payer BC, OTHER ==
[2021-06-17 18:48] VITALS: TEMP 97.8; BMI 25.8
[2021-06-17] MEDS ORDERED: SODIUM CHLORIDE 1,000 ML IV STA (21:23)
[2021-06-17 22:03] LABS: BASO % 0.8 % (0-2.0); EOS % 3.1 % (0-4.5); HEMATOCRIT 33.9 % (32.4-45.2); HEMOGLOBIN 11.5 GM/dL (10.7-15.3); LYMPH % 41.4 % (8-40); MEAN CELL VOLUME 91.1 fl (80-96); MEAN PLT VOLUME 9.7 fl (7.5-11.1); MONO % 11.5 % (3.8-10.2); NEUT % 43.2 % (42.8-82.8); PLATELET COUNT 195 10^3/uL (134-434); RBC 3.72 M/mm3 (3.60-5.2); RDW 14.3 % (11.6-15.6); WHITE BLOOD COUNT 4.4 K/mm3 (4.0-10.0)
[2021-06-17 22:14] LABS: INR 0.91 (0.83-1.09); PROTHROMBIN TIME (PATIENT) 10.6 SEC (9.7-13.0)
[2021-06-17 22:16] LABS: CHLORIDE 102 mmol/L (98-107); SODIUM 140 mmol/L (136-145)
[2021-06-17 22:17] LABS: ACTIVATED PTT 31.3 SECONDS (25.2-36.5)
[2021-06-17 22:18] LABS: CALCIUM 9.2 mg/dL (8.5-10.1)
[2021-06-17 22:19] LABS: ALBUMIN 3.6 g/dl (3.4-5.0); ANION GAP 8 MMOL/L (8-16); BLOOD UREA NITROGEN 19.6 mg/dL (7-18); CO2 30 mmol/L (21-32); GLUCOSE,RANDOM 90 mg/dL (74-106)
[2021-06-17 22:22] LABS: CREATININE 0.8 mg/dL (0.55-1.3); SGOT/AST 31 U/L (15-37); SGPT/ALT 42 U/L (13-61)
[2021-06-17 22:23] LABS: TOT PROT 7.2 g/dl (6.4-8.2)
[2021-06-17 22:24] LABS: ALK PHOS 90 U/L (45-117); BILIRUBIN,TOTAL 0.3 mg/dL (0.2-1)
[2021-06-18 00:56] VITALS: BP 133/71; PULSE 62
== END 2021-06-18 00:56 | disposition home or self-care (01) ==
LOC: JER 18:38
DX: H11.32 Conjunctival hemorrhage, left eye (principal); G44.219 Episodic tension-type headache, not intractable
CPT/HCPCS: 36415; 70496-TC; 80053; 82550; 84484; 85025; 85610; 85651; 85730; 99285-25

== ENCOUNTER → 2021-06-23 | Emergency (ER) | payer BC, OTHER ==
[2021-06-23 17:32] VITALS: BP 173/84; PULSE 78; TEMP 97.8; BMI 25.8
== END ==
LOC: JER 17:10
DX: R09.89 Other specified symptoms and signs involving the circulatory and respiratory systems (principal)
CPT/HCPCS: 99281-25

== ENCOUNTER 2021-08-19 18:33 | Emergency (ER) | payer BC, OTHER ==
[2021-08-19 18:43] VITALS: TEMP 97.8; BMI 27.7
[2021-08-19 21:22] LABS: ARTERIAL BLD GAS O2 SATURATION 96.4 % (95-98); ARTERIAL BLOOD GAS BASE EXCESS -0.4 mmol/L (-2-2); ARTERIAL BLOOD GAS PO2 88.3 mmHg (80-100); ARTERIAL BLOOD GAS pH 7.361 (7.350-7.450)
[2021-08-19 22:10] VITALS: BP 140/86; PULSE 89
== END 2021-08-19 22:08 | disposition home or self-care (01) ==
LOC: JER 18:33
DX: J70.5 Respiratory conditions due to smoke inhalation (principal); T59.811A Toxic effect of smoke, accidental (unintentional), initial encounter
CPT/HCPCS: 36600; 71046-TC-FY; 82375; 82803; 99283-25

== ENCOUNTER 2021-11-17 21:08 | Emergency (ER) | payer BC, OTHER ==
[2021-11-17 21:41] VITALS: TEMP 98.1; BMI 26.1
[2021-11-17] MEDS ORDERED: FAMOTIDINE 20 MG/50 ML IVPB 20 MG/50 ML MG IVPB ONE (22:51)
[2021-11-17] MEDS ORDERED: ACETAMINOPHEN 1000 MG/100 ML BAG IVPB ONE (22:52)
[2021-11-17] MEDS ORDERED: MAG HYDROX/AL HYDROX/SIMETH -MYLANTA- ORAL SUSPENSION PO ONE (22:52)
[2021-11-17] MEDS ORDERED: ACETAMINOPHEN INJECTION 100 ML IVPB ONE (23:29)
[2021-11-17] MEDS ORDERED: FAMOTIDINE 10 MG/ML VIAL IVPB ONE (23:30)
[2021-11-17] MEDS ORDERED: MAG HYDROX/AL HYDROX/SIMETH 30 ML UNIT-DOSE CUP ONE (23:30)
[2021-11-17 23:47] LABS: BASO % 0.5 % (0-2.0); EOS % 1.6 % (0-4.5); HEMATOCRIT 36.3 % (32.4-45.2); HEMOGLOBIN 12.2 GM/dL (10.7-15.3); LYMPH % 47.7 % (8-40); MCH 30.7 pg (25.7-33.7); MCHC 33.7 g/dl (32.0-36.0); MEAN CELL VOLUME 91.3 fl (80-96); MEAN PLT VOLUME 10.2 fl (7.5-11.1); NEUT % 41.2 % (42.8-82.8); PLATELET COUNT 172 10^3/uL (134-434); RBC 3.97 M/mm3 (3.60-5.2); RDW 13.8 % (11.6-15.6)
[2021-11-17 23:54] LABS: INR 0.96 (0.83-1.09)
[2021-11-17 23:57] LABS: ACTIVATED PTT 34.6 SECONDS (25.2-36.5)
[2021-11-18 00:08] LABS: CALCIUM 9.3 mg/dL (8.5-10.1)
[2021-11-18 00:09] LABS: BLOOD UREA NITROGEN 16.1 mg/dL (7-18)
[2021-11-18 00:12] LABS: CREATININE 0.9 mg/dL (0.55-1.3)
[2021-11-18 00:13] LABS: BILIRUBIN,TOTAL 0.4 mg/dL (0.2-1)
[2021-11-18 00:14] LABS: TOT PROT 7.7 g/dl (6.4-8.2)
[2021-11-18 03:44] VITALS: BP 131/76; PULSE 58
[2021-11-19 16:08] LABS: SARS-CoV-2 NAA Not Detected (Not Detected)
== END 2021-11-18 03:43 | disposition home or self-care (01) ==
LOC: JER 21:08
PROC: 3E0333Z Introduction of Anti-inflammatory into Peripheral Vein, Percutaneous Approach (ICD-10-PCS; principal; 2021-11-17)
DX: R07.9 Chest pain, unspecified (principal)
CPT/HCPCS: 36415; 70450-TC; 71045-TC-FY; 80053; 84484; 85025; 85610; 85730; 87804; 93005; 93010; 99285-25; C9803-CS; U0003; U0005

== ENCOUNTER 2022-07-24 17:54 | Emergency (ER) | payer BC, OTHER ==
[2022-07-24 18:44] VITALS: RESP 16; TEMP 97.9
[2022-07-24 18:46] VITALS: BMI 27.6
[2022-07-24] MEDS ORDERED: SODIUM CHLORIDE 0.9% 500 ML INFUS.BAG IV ONE (19:09)
[2022-07-24] MEDS ORDERED: PROCHLORPERAZINE INJECTION 10 MG/2 ML VIAL IVPB ONE (19:09)
[2022-07-24] MEDS ORDERED: LIDOCAINE 5% TOPICAL PATCH TP ONE (19:10)
[2022-07-24] MEDS ORDERED: PROCHLORPERAZINE INJECTION 10 MG/2 ML VIAL ONE (19:26)
[2022-07-24 20:32] LABS: BASO % 0.4 % (0-2.0); EOS % 1.4 % (0-4.5); HEMATOCRIT 33.8 % (32.4-45.2); HEMOGLOBIN 11.1 GM/dL (10.7-15.3); MCH 29.7 pg (25.7-33.7); MCHC 32.7 g/dl (32.0-36.0); MEAN CELL VOLUME 90.8 fl (80-96); MEAN PLT VOLUME 9.6 fl (7.5-11.1); MONO % 9.3 % (3.8-10.2); NEUT % 56.9 % (42.8-82.8); PLATELET COUNT 185 10^3/uL (134-434); RBC 3.72 M/mm3 (3.60-5.2); RDW 14.4 % (11.6-15.6); WHITE BLOOD COUNT 4.6 K/mm3 (4.0-10.0)
[2022-07-24 21:00] LABS: ALBUMIN 3.6 g/dl (3.4-5.0); CALCIUM 8.9 mg/dL (8.5-10.1)
[2022-07-24 21:04] LABS: CREATININE 0.9 mg/dL (0.55-1.3)
[2022-07-24 21:05] LABS: BILIRUBIN,TOTAL 0.3 mg/dL (0.2-1); TOT PROT 6.9 g/dl (6.4-8.2)
[2022-07-24 22:50] VITALS: BP 119/65; PULSE 69
== END 2022-07-25 00:28 | disposition home or self-care (01) ==
LOC: JER 17:54
PROC: 3E033GC Introduction of Other Therapeutic Substance into Peripheral Vein, Percutaneous Approach (ICD-10-PCS; principal; 2022-07-24)
DX: R51.9 Headache, unspecified (principal)
CPT/HCPCS: 36415; 70450-TC; 80053; 84484; 85025; 93005; 93010; 99285-25

== ENCOUNTER 2022-08-28 16:33 | Emergency (ER) | payer BC, OTHER ==
[2022-08-28 16:49] VITALS: RESP 16; TEMP 98.2; BMI 27.3
[2022-08-28 18:30] LABS: BASO % 0.6 % (0-2.0); EOS % 0.9 % (0-4.5); HEMATOCRIT 32.5 % (32.4-45.2); HEMOGLOBIN 10.9 GM/dL (10.7-15.3); LYMPH % 36.5 % (8-40); MCHC 33.6 g/dl (32.0-36.0); MEAN CELL VOLUME 92.3 fl (80-96); MEAN PLT VOLUME 10.5 fl (7.5-11.1); MONO % 9.3 % (3.8-10.2); NEUT % 52.7 % (42.8-82.8); PLATELET COUNT 161 10^3/uL (134-434); RBC 3.52 M/mm3 (3.60-5.2); RDW 14.1 % (11.6-15.6); WHITE BLOOD COUNT 4.3 K/mm3 (4.0-10.0)
[2022-08-28 18:46] LABS: CALCIUM 8.9 mg/dL (8.5-10.1)
[2022-08-28 18:47] LABS: ALBUMIN 3.7 g/dl (3.4-5.0); BLOOD UREA NITROGEN 11.6 mg/dL (7-18); MAGNESIUM 2.4 mg/dL (1.8-2.4)
[2022-08-28 18:50] LABS: CREATININE 0.8 mg/dL (0.55-1.3); PHOSPHOROUS 3.5 mg/dL (2.5-4.9)
[2022-08-28 18:51] LABS: BILIRUBIN,TOTAL 0.3 mg/dL (0.2-1); TOT PROT 6.8 g/dl (6.4-8.2)
[2022-08-28 20:53] LABS: PROTHROMBIN TIME (PATIENT) 11.6 SEC (9.7-13.0)
[2022-08-28 20:56] LABS: ACTIVATED PTT 33.3 SECONDS (25.2-36.5)
[2022-08-28 21:27] VITALS: BP 108/78; PULSE 56
[2022-08-28 21:39] LABS: EPI CELLS 3 /uL (0-25.1); HYALINE CASTS 0 /uL (0-3.1); URINE APPEARANCE CLEAR; URINE BACTERIA 21 /uL (0-1359); URINE BILIRUBIN NEGATIVE (NEGATIVE); URINE COLOR YELLOW; URINE GLUCOSE (UA) NEGATIVE (NEGATIVE); URINE KETONE NEGATIVE (NEGATIVE); URINE LEUK ESTERASE TRACE (NEGATIVE); URINE NITRITE NEGATIVE (NEGATIVE); URINE PROTEIN NEGATIVE (NEGATIVE); URINE RBC 6 /uL (0-23.9); URINE UROBILINOGEN 0.2 mg/dL (0.2-1.0); URINE WBC 12 /uL (0-25.8)
== END 2022-08-28 22:50 | disposition home or self-care (01) ==
LOC: JER 16:33
DX: R07.9 Chest pain, unspecified (principal)
CPT/HCPCS: 0241U-QW; 36415; 71046-TC-FY; 80053; 81003; 83735; 84100; 84484; 85025; 85379; 85610; 85730; 87077; 87086; 93005; 93010; 99285-25

== ENCOUNTER 2022-11-26 11:26 | Emergency (ER) | payer BC, OTHER ==
[2022-11-26 11:30] VITALS: RESP 18; TEMP 97.8; BMI 25.5
[2022-11-26] MEDS ORDERED: ACETAMINOPHEN 1000 MG/100 ML BAG IVPB ONE (12:37)
[2022-11-26] MEDS ORDERED: SODIUM CHLORIDE 0.9% 500 ML INFUS.BAG IV ONE ×2 (12:37→15:22)
[2022-11-26] MEDS ORDERED: ONDANSETRON 4 MG/2 ML VIAL IVPUSH ONE (12:38)
[2022-11-26 13:05] LABS: URINE APPEARANCE CLEAR; URINE BILIRUBIN NEGATIVE (NEGATIVE); URINE COLOR YELLOW; URINE GLUCOSE (UA) NEGATIVE (NEGATIVE); URINE KETONE NEGATIVE (NEGATIVE); URINE LEUK ESTERASE NEGATIVE (NEGATIVE); URINE NITRITE NEGATIVE (NEGATIVE); URINE PROTEIN NEGATIVE (NEGATIVE); URINE UROBILINOGEN 0.2 mg/dL (0.2-1.0)
[2022-11-26] MEDS ORDERED: ONDANSETRON 4 MG/2 ML VIAL ONE (13:09)
[2022-11-26] MEDS ORDERED: ACETAMINOPHEN INJECTION 100 ML IVPB ONE (13:09)
[2022-11-26 13:39] LABS: HEMATOCRIT 34.5 % (32.4-45.2); HEMOGLOBIN 11.6 GM/dL (10.7-15.3); MCH 30.7 pg (25.7-33.7); MCHC 33.8 g/dl (32.0-36.0); MEAN CELL VOLUME 90.9 fl (80-96); MEAN PLT VOLUME 11.1 fl (7.5-11.1); PLATELET COUNT 212 10^3/uL (134-434); RBC 3.79 M/mm3 (3.60-5.2); RDW 13.9 % (11.6-15.6); WHITE BLOOD COUNT 4.8 K/mm3 (4.0-10.0)
[2022-11-26 14:06] LABS: POTASSIUM 4.8 mmol/L (3.5-5.1)
[2022-11-26 14:07] LABS: CALCIUM 9.1 mg/dL (8.5-10.1)
[2022-11-26 14:08] LABS: ALBUMIN 3.9 g/dl (3.4-5.0); BLOOD UREA NITROGEN 17.9 mg/dL (7-18)
[2022-11-26 14:11] LABS: CREATININE 0.9 mg/dL (0.55-1.3)
[2022-11-26 14:13] LABS: BILIRUBIN,TOTAL 0.4 mg/dL (0.2-1); TOT PROT 7.6 g/dl (6.4-8.2)
[2022-11-26 16:03] VITALS: BP 138/60; PULSE 80
== END 2022-11-26 16:03 | disposition home or self-care (01) ==
LOC: JER 11:26
PROC: 3E033NZ Introduction of Analgesics, Hypnotics, Sedatives into Peripheral Vein, Percutaneous Approach (ICD-10-PCS; principal; 2022-11-26)
PROC: 3E033GC Introduction of Other Therapeutic Substance into Peripheral Vein, Percutaneous Approach (ICD-10-PCS; 2022-11-26)
DX: R51.9 Headache, unspecified (principal); R11.0 Nausea
CPT/HCPCS: 36415; 70450-TC; 71045-TC-FY; 80053; 81003; 84484; 85027; 86850; 86900; 86901; 87086; 93005; 93010; 99285-25

== ENCOUNTER 2023-02-14 03:04 | Emergency (ER) | payer BC, OTHER ==
[2023-02-14 03:12] VITALS: RESP 18; BMI 27.3
[2023-02-14] MEDS: ONDANSETRON 4 MG/2 ML VIAL IVPUSH ONE ×2 (04:34→04:36)
[2023-02-14] MEDS ORDERED: ONDANSETRON 4 MG/2 ML VIAL ONE (04:34)
[2023-02-14 04:39] LABS: BASO % 0.5 % (0-2.0); EOS % 2.1 % (0-4.5); HEMATOCRIT 32.2 % (32.4-45.2); HEMOGLOBIN 11.4 GM/dL (10.7-15.3); MCH 31.8 pg (25.7-33.7); MCHC 35.2 g/dl (32.0-36.0); MEAN CELL VOLUME 90.3 fl (80-96); MEAN PLT VOLUME 10.1 fl (7.5-11.1); MONO % 12.3 % (3.8-10.2); NEUT % 48.1 % (42.8-82.8); PLATELET COUNT 156 10^3/uL (134-434); RBC 3.57 M/mm3 (3.60-5.2); RDW 13.7 % (11.6-15.6); WHITE BLOOD COUNT 3.4 K/mm3 (4.0-10.0)
[2023-02-14 04:57] LABS: POTASSIUM 4.4 mmol/L (3.5-5.1)
[2023-02-14 04:59] LABS: ALBUMIN 3.9 g/dl (3.4-5.0); CALCIUM 9.1 mg/dL (8.5-10.1)
[2023-02-14 05:02] LABS: CREATININE 1.3 mg/dL (0.55-1.3)
[2023-02-14 05:04] LABS: BILIRUBIN,TOTAL 0.4 mg/dL (0.2-1); TOT PROT 7.3 g/dl (6.4-8.2)
[2023-02-14] MEDS ORDERED: HYDROCHLOROTHIAZIDE 25 MG TABLET (FP) PO ONE (05:10)
[2023-02-14] MEDS ORDERED: HYDROCHLOROTHIAZIDE 25 MG TABLET (FP) ONE (05:40)
[2023-02-14] MEDS ORDERED: LACTATED RINGERS SOLUTION 1000 ML INFUS.BAG IV ONE (09:03)
[2023-02-14 11:12] VITALS: BP 148/79; PULSE 59; TEMP 98.2
== END 2023-02-14 11:12 | disposition home or self-care (01) ==
LOC: JER 03:04
DX: I10 Essential (primary) hypertension (principal)
CPT/HCPCS: 36415; 71045-TC-FY; 71275-TC; 74174-TC; 80053; 84484; 85025; 93005; 93010; 99285-25; Q9967

== ENCOUNTER 2023-02-19 07:42 | Emergency (ER) | payer OTHER ==
[2023-02-19 08:02] VITALS: BP 136/70; PULSE 72; RESP 18; TEMP 98.2; BMI 26.1
[2023-02-19 09:10] LABS: ARTERIAL BLOOD GAS BASE EXCESS -1.9 mmol/L (-2-2); ARTERIAL BLOOD GAS PO2 107.3 mmHg (80-100); ARTERIAL BLOOD GAS pH 7.407 (7.350-7.450)
[2023-02-19 09:13] LABS: ALLENS TEST POSITIVE
== END 2023-02-19 09:35 | disposition home or self-care (01) ==
LOC: JER 07:42
DX: R11.0 Nausea (principal); R42 Dizziness and giddiness; R51.9 Headache, unspecified; T58.91XA Toxic effect of carbon monoxide from unspecified source, accidental (unintentional), initial encounter
CPT/HCPCS: 36600; 82375; 82803; 93005; 93010; 99284-25

== ENCOUNTER 2023-03-16 19:05 | Emergency (ER) | payer OTHER ==
[2023-03-16 19:23] VITALS: BP 151/77; PULSE 78; RESP 18; TEMP 97.8; BMI 26.6
[2023-03-16] MEDS ORDERED: SODIUM CHLORIDE 1,000 ML IV ONE (20:04)
[2023-03-16 21:04] LABS: HEMATOCRIT 32.2 % (32.4-45.2); HEMOGLOBIN 10.9 G/dL (10.7-15.3); MEAN CELL VOLUME 94.2 fl (80-96); MEAN PLT VOLUME 10.1 fl (7.5-11.1); PLATELET COUNT 142.2 10^3/uL (134-434); RBC 3.42 10^6/uL (3.60-5.2); WHITE BLOOD COUNT 3.9 10^3/uL (4.0-10.8)
[2023-03-16 21:12] LABS: ALBUMIN 4.1 g/dl (3.4-5.0); BLOOD UREA NITROGEN 14.5 mg/dl (7-18); CALCIUM 9.2 mg/dl (8.5-10.1); POTASSIUM 3.8 mmol/L (3.5-5.1); SGOT/AST 20.9 U/L (15-37); SGPT/ALT 11.3 U/L (7-52); TOT PROT 6.3 g/dl (6.4-8.2)
[2023-03-16 23:44] LABS: BILIRUBIN,TOTAL 0.4 mg/dL (0.2-1)
== END 2023-03-16 21:54 | disposition home or self-care (01) ==
LOC: FER 19:05
PROC: 3E0337Z Introduction of Electrolytic and Water Balance Substance into Peripheral Vein, Percutaneous Approach (ICD-10-PCS; principal; 2023-03-16)
DX: R42 Dizziness and giddiness (principal)
CPT/HCPCS: 36415; 80053; 82550; 82553; 84484; 85027; 93005; 99284-25

== ENCOUNTER 2023-06-09 22:26 | Emergency (ER) | payer OTHER ==
[2023-06-09 22:43] VITALS: BP 125/74; PULSE 73; RESP 16; TEMP 97.6; BMI 27.3
[2023-06-09] MEDS ORDERED: KETOROLAC TROMETHAMINE 30 MG/1 ML VIAL IM ONE (22:57)
[2023-06-09] MEDS ORDERED: ACETAMINOPHEN 500 MG TABLET (FP) PO ONE (22:57)
[2023-06-09] MEDS ORDERED: ACETAMINOPHEN 500 MG TABLET (FP) ONE (23:05)
[2023-06-09] MEDS ORDERED: KETOROLAC TROMETHAMINE 30 MG/1 ML VIAL ONE (23:05)
== END 2023-06-10 03:26 | disposition home or self-care (01) ==
LOC: JER 22:26
PROC: 3E0233Z Introduction of Anti-inflammatory into Muscle, Percutaneous Approach (ICD-10-PCS; principal; 2023-06-09)
DX: S93.402A Sprain of unspecified ligament of left ankle, initial encounter (principal); M25.572 Pain in left ankle and joints of left foot; X50.1XXA Overexertion from prolonged static or awkward postures, initial encounter; Y93.01 Activity, walking, marching and hiking
CPT/HCPCS: 73590-TC-LT-FY; 73610-TC-LT-FY; 73630-TC-LT; 99284-25

== ENCOUNTER 2023-11-24 13:38 | Emergency (ER) | payer OTHER ==
[2023-11-24 13:47] VITALS: BP 102/59; PULSE 65; RESP 18; TEMP 98; BMI 28.8
== END 2023-11-24 15:27 | disposition home or self-care (01) ==
LOC: JERFT 13:38
DX: M79.675 Pain in left toe(s) (principal); S92.505A Nondisplaced unspecified fracture of left lesser toe(s), initial encounter for closed fracture; X58.XXXA Exposure to other specified factors, initial encounter; Y93.01 Activity, walking, marching and hiking
CPT/HCPCS: 73660-TC-LT-FY; 99283-25

== ENCOUNTER 2024-03-15 07:44 | Emergency (ER) | payer OTHER ==
[2024-03-15 07:49] VITALS: BP 124/70; PULSE 70; RESP 18; TEMP 97.9; BMI 27.3
[2024-03-15] MEDS ORDERED: FLUORESCEIN NA 1 EA STRIP ONE (08:10)
[2024-03-15] MEDS: TETRACAINE 0.5% HCL 0.6ML DROPPER.BOTTLE OU ONE (08:15)
== END 2024-03-15 08:40 | disposition home or self-care (01) ==
LOC: JER 07:44
DX: H57.13 Ocular pain, bilateral (principal); T55.1X1A Toxic effect of detergents, accidental (unintentional), initial encounter
CPT/HCPCS: 99283-25

== ENCOUNTER 2024-09-26 19:41 | Emergency (ER) | payer OTHER ==
[2024-09-26 19:46] VITALS: RESP 16; TEMP 98.3; BMI 28.8
[2024-09-26] MEDS ORDERED: ACETAMINOPHEN 500 MG TABLET (FP) ONE (20:54)
[2024-09-26] MEDS: ACETAMINOPHEN 500 MG TABLET (FP) PO ONE (21:02)
[2024-09-26 23:56] VITALS: BP 125/67; PULSE 81
== END 2024-09-27 00:10 | disposition home or self-care (01) ==
LOC: JER 19:41
DX: M79.661 Pain in right lower leg (principal)
CPT/HCPCS: 93971-TC; 99283-25